=== PATIENT | male | born 1960 | race African-American/Black ===

== ENCOUNTER 2017-07-20 05:36 | Emergency (ER) | payer OTHER ==
[~2017-07-20] VITALS: Ht 182.9 cm; Wt 122.5 kg
[~2017-07-20 05:36] MED LIST: ASPIRIN325; CLEOCIN HCL300 MG PO; FISHOIL; HCTZ; LISINOPRIL; OCEAN45 ML NS; PERCOCET 5-3251 EACH PO
[2017-07-20] MEDS ORDERED: AZITHROMYCIN 2250 MG PO (07:11)
[2017-07-20] MEDS ORDERED: FLOVENT HFA 4444 MCG INH (07:11)
[2017-07-20 07:29] VITALS: BP 186/98
== END 2017-07-20 07:30 | disposition home or self-care (01) ==
LOC: ER 05:36
DX: J44.1 Chronic obstructive pulmonary disease with (acute) exacerbation (principal); I10 Essential (primary) hypertension; Z88.0 Allergy status to penicillin

== ENCOUNTER 2017-07-21 05:17 | Inpatient (IN) | payer OTHER ==
[~2017-07-21] VITALS: Ht 182.9 cm; Wt 121.6 kg
[2017-07-21] VITALS (11 sets, daily range): BP systolic 143–231; BP diastolic 78–163
--- NOTE | ~2017-07-21 | HC ---
[facility] [place] [address] CONSULTATION Name: SAUL LEÓN Room #: 200-I [facility] ..#: [id number] Admission: 07/21/17 Attend Phys: Kameron Woods MD Discharge: 07/22/17 Date of : 64 Report #: [id number] THIS REPORT FOR: //name// CC: Kameron GOLDEN unknown REASON FOR CONSULTATION: Cardiomyopathy. HISTORY OF PRESENT ILLNESS: The patient is a 56-year-old gentleman, remotely seen by Dr. Moraes who placed an LAD stent in 10/2012. He was last seen in the office in 2013. He has known occlusion of the right coronary with a nonischemic stress study in and around that same time. He now presents with increasing shortness of breath. On presentation, he was severely hypertensive. He had stopped all of his medications. He typically and recently has followed with a verification clerk at [facility]. He denies chest heaviness, pressure or ischemic type symptoms. There have been no heart failure symptoms including orthopnea, paroxysmal nocturnal dyspnea or lower extremity edema. No history of near syncope or syncope. MEDICATIONS: Include Aldactone 50 mg daily, atorvastatin 40 mg daily, carvedilol 25 mg twice daily, clonidine 0.2 mg twice daily, Lasix 40 mg daily, losartan 100 mg daily, amlodipine 10 mg daily. PAST MEDICAL HISTORY: Medical records have been reviewed and include a history of hypertension; chronic kidney disease, followed by Dr. Bailey, stage 3-4; depression; dyslipidemia. Cystoscopy with stent placement in 2003. SOCIAL HISTORY: He is an ongoing smoker, nondrinker. ALLERGIES: HE IS ALLERGIC TO PENICILLIN. FAMILY HISTORY: Father of cancer. REVIEW OF SYSTEMS: All systems negative except as that noted above. PHYSICAL EXAMINATION: GENERAL: A pleasant gentleman who is alert and in no distress. VITAL SIGNS: Blood pressure is 145/103. His presenting blood pressure was 218/156. 6 feet tall, 268 pounds. HEENT: There are neither xanthelasma, subcutaneous xanthomata, oral mucosal or digital cyanosis or kyphoscoliosis present. CHEST: Clear to auscultation and percussion. CARDIOVASCULAR: Regular rate and rhythm with normal S1, S2. No murmurs, rubs. ABDOMEN: Soft and nontender. EXTREMITIES: Without cyanosis, clubbing or edema. Radial pulses are 2+. NEUROLOGIC: Alert with a nonfocal exam. [facility] [address] [place] [address] CONSULTATION Name: SAUL LEÓN Room #: 200-I [facility]#: [id number] Admission: 07/21/17 Attend Phys: Kameron Woods MD Discharge: 07/22/17 Date of : 64 Report #: [id number] LABORATORY DATA: Sodium is 140, potassium 3.4, creatinine 2.7. Troponin 0.11, 0.14, 0.15. Cholesterol 268, LDL 180. White count 7.3, hemoglobin 12, hematocrit 37, platelet count 203. Normal thyroid function studies. RADIOLOGICAL DATA: Chest x-ray demonstrates cardiomegaly. Echocardiogram I have reviewed, ejection fraction 35% with inferior wall hypokinesis. This echocardiogram was obtained in the setting of severe hypertension. EKG, sinus rhythm with premature ventricular complexes, prior inferior infarct, LVH. IMPRESSION: 1. Hypertensive urgency. 2. Mixed hypertensive and ischemic cardiomyopathy. 3. Coronary artery disease with known right coronary artery occlusion, remote LAD stenting, no angina or ischemic type symptoms. 4. Chronic kidney disease, stage 3-4. 5. Dyslipidemia. 6. Tobacco dependency. 7. Medical noncompliance. RECOMMENDATIONS: 1. Agree with resumption of blood pressure medications. 2. Smoking cessation encouraged as well as salt restriction. 3. The patient would prefer all medicines and adjustments to come from one physician, preferably Dr. Avalos. He reports that he has seen 4 or 5 different physicians over the past year and multiple medicine changes have been made, making confused as to what exactly he should be taking. Cost of medicines is also a major issue and compliance. Currently, he is on all generic medicines. 4. Continued followup through his established verification clerk at [employer] scheduled. I have discussed these issues with the patient in detail. Thank you for asking me to participate in his care. <ELECTRONICALLY SIGNED> By: Cayetano Beard MD, [facility] 07/23/17 0903 [id number] Cayetano Beard MD, FACC /nt
--- NOTE | ~2017-07-21 | HC ---
[facility] [place] [address] CONSULTATION Name: SAUL LEÓN Room #: 200-I [facility] M.R.#: [id number] Admission: 07/21/17 Attend Phys: Kameron Woods MD Discharge: 07/22/17 Date of : 64 Report #: [id number] THIS REPORT FOR: //name// CC: Kameron Woods [facility] unknown DATE OF SERVICE: 07/21/2017 ATTENDING PHYSICIAN: Dr. Woods. REASON FOR CONSULTATION: Chronic kidney disease, hypertension. HISTORY OF PRESENT ILLNESS: The patient is well known to our service, followed by Dr. Avalos in the office with hypertensive nephrosclerosis and chronic kidney disease, stopped taking his medicines, developed worsening shortness of breath and came to the hospital. He was found to have some heart failure, high blood pressures and a creatinine of 2.8. PAST MEDICAL HISTORY: Longstanding difficult hypertension, poor compliance, chronic kidney disease, coronary artery disease, status post 2 coronary stents about 12-15 years ago. FAMILY HISTORY: Strongly positive for severe hypertension and chronic kidney disease. Mother was on dialysis. SOCIAL HISTORY: Smokes cigarettes, does not drink much alcohol. 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 REVIEW OF SYSTEMS: GENERAL: He has been feeling reasonably well, more shortwinded of late. EYES: Vision has been okay. ENT: Hearing okay. Swallows okay. No mouth ulcers. ENDOCRINE: No diabetes or thyroid disease. RESPIRATORY: Does get somewhat easily shortwinded with some orthopnea. CARDIAC: He is having a little bit of chest discomfort, not severe, 2 previous coronary stents as mentioned. GASTROINTESTINAL: No nausea, vomiting, diarrhea or bloody stools. GENITOURINARY: Good urinary stream without hematuria or stones. NEUROLOGIC: No seizure, syncope, stroke or neuropathy symptoms. PSYCHIATRIC: No depression or anxiety. MUSCULOSKELETAL: Denies arthritis. PHYSICAL EXAMINATION: GENERAL: This is a well-oriented gentleman, not shortwinded at rest, giving a good history. SKIN: Unremarkable. [facility] [address] [place] [address] CONSULTATION Name: SAUL LEÓN Room #: 200-I [facility].#: [id number] Admission: 07/21/17 Attend Phys: Kameron Woods MD Discharge: 07/22/17 Date of : 64 Report #: [id number] SKELETAL: Somewhat overweight. HEENT: Extraocular movements are full. No scleral icterus. Hearing and vision intact. Mucous membranes moist. Tongue, buccal mucosa benign. NECK: Supple, no carotid bruits are heard. CHEST: Diminished breath sounds at the bases. HEART: Regular. ABDOMEN: Soft, nontender. EXTREMITIES: Showing no edema. NEUROLOGIC: Grossly intact. LABORATORY DATA: Urinalysis pending. Hemoglobin 13.4. Sodium 144, potassium 3.0, chloride 107, bicarbonate 27, BUN 27, creatinine 2.8. Troponin I 0.15. ASSESSMENT AND PLAN: 1. Chronic kidney disease. He has known longstanding hypertensive nephrosclerosis, followed in our office. I will be restarting his home medications to control his blood pressure. He does have previous coronary stents, may need further attention in that regard. His major problem is noncompliance and running out of his medications and those will be restored. 2. Cigarette smoking. 3. Severe hypertension. 4. Medical noncompliance. <ELECTRONICALLY SIGNED> By: Ellis Rodriguez MD 07/23/17 1101 0920 [id number] Ellis Rodriguez MD /nt
--- NOTE | ~2017-07-21 | 2DMMODE ---
[facility] [address] [place] [address] 2 D/M-MODE ECHOCARDIOGRAM Name: SAUL LEÓN Room #: 200-I ADM IN ..#: [id number] Admission: 07/21/17 Attend Phys: Kameron Woods MD Discharge: Date of : 64 Date of Service: 07/21/17 1158 Report #: [id number] THIS REPORT FOR: //name// APPROVED REPORT Study performed: 07/21/2017 09:10:01 EXAM: Comprehensive 2D, Doppler, and color-flow Echocardiogram Patient Location: Bedside Room #: 200 Status: routine BSA: 2.44 HR: 87 bpm BP: 181/121 mmHg Other Information Study Quality: Adequate Indications Congestive Heart Failure COPD Dyspnea CAD Chest Pain Hypertension/HDD 2D Dimensions RVDd: 30.89 mm LVEF(%): 15.56 (>50%) IVSd: 15.13 (7-11mm) LVOT Diam: 24.40 (18-24mm) LVDd: 70.79 mm PWd: 14.32 (7-11mm) Ascending Ao: 33.87 (22-36mm) LVDs: 65.68 (25-40mm) Aortic Root: 31.46 mm IVC: 27.00 mm Waddell's LVEF: 15.56 % Volumes Left Atrial Volume (Systole) Single Plane 4CH: 81.27 mL Single Plane 2CH: 123.97 mL LA ESV Index: 45.00 mL/m2 Aortic Valve AoV Peak Phil.: 1.20 m/s AO Peak Gr.: 5.76 mmHg LVOT Max P.31 mmHg LVOT Max V: 0.76 m/s SALMA Vmax: 2.96 cm2 [facility] [address] [place] [address] 2 D/M-MODE ECHOCARDIOGRAM Name: SAUL LEÓN Room #: 200-I [facility] IN ..#: [id number] Admission: 07/21/17 Attend Phys: Kameron Woods MD Discharge: Date of : 64 Date of Service: 07/21/17 1158 Report #: [id number] AI Vmax: 5.79 m/s AI Mason: 4.13 m/s2 AI PHT: 433.11 ms Mitral Valve E/A Ratio: 1.3 MV Decel. Time: 115.41 ms MV E Max Phil.: 1.25 m/s MV A Phil.: 0.94 m/s MV PHT: 33.47 ms IVRT: 96.89 ms Pulmonary Valve PV Peak Phil.: 0.73 m/s PV Peak Gr.: 2.15 mmHg Pulmonary Vein P Vein S: 0.49 m/s P Vein A: 0.28 m/s P Vein D: 0.62 m/s P Vein A Dur.: 166.1 msec P Vein S/D Ratio: 0.79 Tricuspid Valve TR Peak Phil.: 2.45 m/s TR Peak Gr.: 23.93 mmHg PA Pressure: 34.00 mmHg Left Ventricle Left ventricle is dilated. There is global hypokinesis of the left ventricle. Moderate concentric left ventricular hypertrophy. Left ventricular ejection fraction is moderately decreased. Hypokinesis of base of inferolateral and inferior alexandra LVEF is 30-35%. The diastolic function is abnormal. Right Ventricle The right ventricle is normal size. The right ventricular systolic function is normal. Atria Left atrium is dilated. Right atrium is dilated. Aortic Valve Aortic valve is mildly calcified. Mild to moderate aortic regurgitation. There is no aortic valvular stenosis. Mitral Valve The mitral valve is normal in structure. Moderate to moderately severe mitral regurgitation. No evidence of mitral valve [facility] [address] [place] [address] 2 D/M-MODE ECHOCARDIOGRAM Name: SAUL LEÓN Room #: 200-I ADM IN [facility]#: [id number] Admission: 07/21/17 Attend Phys: Kameron Woods MD Discharge: Date of : 64 Date of Service: 07/21/17 1158 Report #: [id number]. Tricuspid Valve The tricuspid valve is normal in structure. There is trace tricuspid regurgitation. Estimated PAP 35 mmHg. There is mild pulmonary hypertension. Pulmonic Valve The pulmonary valve is normal in structure. There is no pulmonic valvular regurgitation. Great Vessels The aortic root is normal in size. IVC is dilated and collapses <50% with inspiration. Pericardium There is no pericardial effusion. <Conclusion> Left ventricular ejection fraction is moderately decreased. Hypokinesis of base of inferolateral and inferior alexandra LVEF is 30-35%. Both atria are dilated. Aortic valve is mildly calcified, no stenosis. Mild to moderate aortic regurgitation. The mitral valve is normal in structure. Moderate to moderately severe mitral regurgitation. There is trace tricuspid regurgitation. Estimated PAP 35 mmHg. There is no pericardial effusion. <ELECTRONICALLY SIGNED> By: Cayetano Beard MD, FACC 07/21/17 1158 1158 1158 Cayetano Beard MD, FACC /INF
--- NOTE | ~2017-07-21 | EKG ---
[place] [address] [address] [facility] [place] [address] ELECTROCARDIOGRAM REPORT Name: SAUL LEÓN Room #: 170-2 ADM IN M.R.#: [id number] Admission: 07/21/17 Attend Phys: Kameron Woods MD Discharge: Date of : 64 Report #: [id number] THIS REPORT FOR: //name// [facility] ED Test Date: 2017-07-21 Test Time: 05:30:38 Pat Name: SAUL LEÓN Department: Room: Gender: M Breadman: Ervin FERNANDES : 1960 Requested By: Jackson Burton Order Number: [id number] MD: Cayetano Beard Measurements Intervals [place] Rate: 96 P: 50 HI: 195 QRS: -20 QRSD: 119 T: 124 QT: 366 QTc: 463 Interpretive Statements Sinus rhythm Frequent premature ventricular complexes LAE, consider biatrial enlargement Left ventricular hypertrophy Inferior infarct, old Poor R wave progression Compared to ECG 07/16/2004 07:03:22 Ventricular premature complex(es) now present ST and T wave abnormality is now present Electronically Signed On 07-21-2017 7:42:25 CDT by Cayetano Beard [email or web address] <ELECTRONICALLY SIGNED> By: Cayetano Beard MD, [facility] 07/21/17 0742 9 Cayetano Beard MD, [facility] /EPI
[~2017-07-21 05:17] MED LIST changes: +AZITHROMYCIN 2250 MG PO; +FLOVENT HFA 4444 MCG INH
[2017-07-21 06:03] LABS: CALCIUM 8.4 mg/dL (8.5-10.1); CREATININE 2.8 mg/dL (0.7-1.3)
[2017-07-21 06:05] LABS: ABSOLUTE NEUTROPHILS 6.1 thou/uL (1.4-8.2); BASOPHILS 0.6 % (0.0-2.0); EOSINOPHILS 2.1 % (0.0-3.0); HEMATOCRIT 39.7 % (42.0-52.0); HEMOGLOBIN 13.4 gm/dL (14.0-18.0); MCH 30.4 pg (26.0-34.0); MCHC 33.8 g/dL (28.0-37.0); MONOCYTES 6.3 % (1.0-8.0); PLATELET COUNT 210 thou/uL (150-400); RBC 4.41 mil/uL (4.50-6.00); RDW 17.7 % (10.5-14.5); WBC 8.9 thou/uL (4.0-11.0)
[2017-07-21 06:12] LABS: TROPONIN-I 0.15 ng/mL (<0.06)
[2017-07-21 10:31] LABS: CHOLESTEROL 268 mg/dL (<200); HDL CHOLESTEROL 46 mg/dL (>40); LDL CHOLESTEROL 180 mg/dL (<100); MAGNESIUM 1.5 mg/dL (1.8-2.4); TC:HDL 5.8 Ratio (Not establshd); TRIGLYCERIDE 212 mg/dL (<150); VLDL 42 mg/dL (<40)
[2017-07-21 10:51] LABS: FOLIC ACID 3.6 ng/mL (8.6-58.9); TSH 2.826 uIU/mL (0.358-3.740)
[2017-07-22] VITALS (7 sets, daily range): BP systolic 137–155; BP diastolic 89–108
[2017-07-22 03:55] LABS: ABSOLUTE NEUTROPHILS 5.2 thou/uL (1.4-8.2); BASOPHILS 0.4 % (0.0-2.0); EOSINOPHILS 3.6 % (0.0-3.0); HEMATOCRIT 37.2 % (42.0-52.0); HEMOGLOBIN 12.5 gm/dL (14.0-18.0); LYMPHOCYTES 18.6 % (24.0-44.0); MCH 30.2 pg (26.0-34.0); MCHC 33.5 g/dL (28.0-37.0); MCV 89.9 fL (80.0-100.0); MONOCYTES 6.2 % (1.0-8.0); PLATELET COUNT 203 thou/uL (150-400); POLYS 71.2 % (36.0-66.0); RBC 4.13 mil/uL (4.50-6.00); RDW 17.5 % (10.5-14.5); WBC 7.3 thou/uL (4.0-11.0)
[2017-07-22 04:07] LABS: ALBUMIN 2.6 g/dL (3.4-5.0); CALCIUM 8.6 mg/dL (8.5-10.1); CREATININE 2.7 mg/dL (0.7-1.3); MAGNESIUM 1.8 mg/dL (1.8-2.4); PHOSPHORUS 3.2 mg/dL (2.5-4.9); POTASSIUM 3.4 mmol/L (3.5-5.1)
[2017-07-22] MEDS ORDERED: SPIRONOLACTONE25 M1 PO (12:28)
[2017-07-22] MEDS ORDERED: AMLODIPINE BESYL5 MG PO (12:28)
[2017-07-22] MEDS ORDERED: COZAAR100 MG PO (12:28)
[2017-07-22] MEDS ORDERED: CLONIDINE HCL0.2 M2 PO (12:28)
[2017-07-22] MEDS ORDERED: CARVEDILOL25 MG PO (12:28)
[2017-07-22] MEDS ORDERED: K-DUR 20 MEQ T20 MEQ PO (12:28)
[2017-07-22] MEDS ORDERED: LIPITOR40 MG PO (12:28)
[2017-07-22] MEDS ORDERED: LASIX 40 MG TAB40 M2 PO (12:28)
== END 2017-07-22 17:20 | disposition home or self-care (01) | DRG 304 ==
LOC: ER 05:17 → EROBS 06:48 → 2N 06:48 → ENTRNSPT 07-22 13:30 → EDTRNSPTSTS 07-22 13:33 → 2N 07-22 17:20
PROVIDERS: Emergency Medicine; Nurse Practitioner
DX: I16.0 Hypertensive urgency (principal); I50.33 Acute on chronic diastolic (congestive) heart failure; I16.1 Hypertensive emergency; N18.4 Chronic kidney disease, stage 4 (severe); N17.9 Acute kidney failure, unspecified; I13.0 Hypertensive heart and chronic kidney disease with heart failure and stage 1 through stage 4 chronic kidney disease, or unspecified chronic kidney disease; E78.2 Mixed hyperlipidemia; I25.5 Ischemic cardiomyopathy; J44.9 Chronic obstructive pulmonary disease, unspecified; E87.6 Hypokalemia; E66.9 Obesity, unspecified; I25.10 Atherosclerotic heart disease of native coronary artery without angina pectoris; F32.9 Major depressive disorder, single episode, unspecified; F17.210 Nicotine dependence, cigarettes, uncomplicated; Z68.36 Body mass index [BMI] 36.0-36.9, adult; Z95.5 Presence of coronary angioplasty implant and graft; Z79.51 Long term (current) use of inhaled steroids; Z91.14 Patient's other noncompliance with medication regimen; Z79.82 Long term (current) use of aspirin; Z79.899 Other long term (current) drug therapy; Z88.0 Allergy status to penicillin; Z82.49 Family history of ischemic heart disease and other diseases of the circulatory system; Z71.6 Tobacco abuse counseling; Z84.1 Family history of disorders of kidney and ureter; Z80.8 Family history of malignant neoplasm of other organs or systems
CPT/HCPCS: 10194

== ENCOUNTER 2018-05-27 08:54 | Emergency (ER) | payer OTHER ==
[~2018-05-27] VITALS: Ht 182.9 cm; Wt 122.5 kg
[~2018-05-27 08:54] MED LIST changes: +AMLODIPINE BESYL5 MG PO; +CARVEDILOL25 MG PO; +CLONIDINE HCL0.2 M2 PO; +COZAAR100 MG PO; +K-DUR 20 MEQ T20 MEQ PO; +LASIX 40 MG TAB40 M2 PO; +LIPITOR40 MG PO; +SPIRONOLACTONE25 M1 PO
[2018-05-27 09:43] LABS: ABSOLUTE NEUTROPHILS 2.5 thou/uL (1.4-8.2); BASOPHILS 0.6 % (0.0-2.0); EOSINOPHILS 7.1 % (0.0-3.0); HEMATOCRIT 33.1 % (42.0-52.0); HEMOGLOBIN 11.2 gm/dL (14.0-18.0); LYMPHOCYTES 20.2 % (24.0-44.0); MCH 30.4 pg (26.0-34.0); MCHC 33.7 g/dL (28.0-37.0); MCV 90.2 fL (80.0-100.0); MONOCYTES 9.9 % (1.0-8.0); PLATELET COUNT 209 thou/uL (150-400); POLYS 62.2 % (36.0-66.0); RBC 3.67 mil/uL (4.50-6.00)
[2018-05-27 09:51] LABS: ANION GAP 9 mmol/L (7-16); BUN 21 mg/dL (7-18); CALCIUM 8.7 mg/dL (8.5-10.1); CHLORIDE 105 mmol/L (98-107); CO2 23 mmol/L (21-32); CREATININE 2.5 mg/dL (0.7-1.3); GLUCOSE 112 mg/dL (74-106); POTASSIUM 4.4 mmol/L (3.5-5.1); SODIUM 137 mmol/L (136-145)
[2018-05-27 10:00] LABS: TROPONIN-I <0.06 ng/mL (<0.06)
[2018-05-27 12:23] VITALS: BP 157/97
[2018-05-27] MEDS ORDERED: PREDNISONE 20 M20 MG PO (12:25)
[2018-05-27] MEDS ORDERED: VENTOLIN HFA 1818 GM INH (12:25)
--- NOTE | 2018-05-27 18:05 | EKG ---
[place] [address] [facility] [place] [address] ELECTROCARDIOGRAM REPORT Name: SAUL LEÓN [facility]: [facility] [id number] ������������������ Admission: 05/27/18 ������������������ Attend Phys: Discharge: 05/27/18 ������������������ Date of : 64 Report #: [id number] ����������������������������������������������������������������� [id number] THIS REPORT FOR: //name// [facility] ED Test Date: 2018-05-27 Test Time: 09:58:30 Pat Name: SAUL LEÓN Department: Room: Gender: M Millinery Blocker: : 1960 Requested By: Jackson Burton Order Number: [id number] MD: Cayetano Beard Measurements Intervals [place] Rate: 71 P: 28 AL: 231 QRS: -33 QRSD: 119 T: 4 QT: 416 QTc: 453 Interpretive Statements Sinus rhythm Prolonged AL interval Left ventricular hypertrophy Inferior infarct, old Poor R wave progression Compared to ECG 07/21/2017 05:30:38 First degree AV block now present Ventricular premature complex(es) no longer present Electronically Signed On 05-27-2018 18:04:47 CDT by Cayetano Beard [email or web address] ��������������������������������������������� <ELECTRONICALLY SIGNED> ���������������������������������������� By: Cayetano Beard MD, [facility] ��������������������������������������������� 05/27/18 1804 0958 0958 Cayetano Beard MD, [facility] /EPI
== END 2018-05-27 12:46 | disposition home or self-care (01) ==
LOC: ER 08:54
PROVIDERS: Emergency Medicine
DX: J44.1 Chronic obstructive pulmonary disease with (acute) exacerbation (principal); F17.210 Nicotine dependence, cigarettes, uncomplicated; I10 Essential (primary) hypertension; Z88.0 Allergy status to penicillin; Z95.5 Presence of coronary angioplasty implant and graft

== ENCOUNTER 2020-06-18 10:35 | Emergency (ER) | payer OTHER ==
[~2020-06-18] VITALS: Ht 177.8 cm; Wt 99.8 kg
[~2020-06-18 10:35] MED LIST changes: +PREDNISONE 20 M20 MG PO; +VENTOLIN HFA 1818 GM INH
[2020-06-18 10:39] VITALS: BP 164/94
[2020-06-18] MEDS ORDERED: NORCO5 PO (10:51)
[2020-06-18] MEDS ORDERED: CLINDAMYCIN HC300 MG PO (10:51)
== END 2020-06-18 11:27 | disposition home or self-care (01) ==
LOC: ER 10:35
DX: K08.89 Other specified disorders of teeth and supporting structures (principal); I10 Essential (primary) hypertension; F17.210 Nicotine dependence, cigarettes, uncomplicated; Z79.899 Other long term (current) drug therapy; Z88.0 Allergy status to penicillin

== ENCOUNTER 2020-08-30 02:06 | Inpatient (IN) | payer OTHER ==
[~2020-08-30] VITALS: Ht 188 cm; Wt 121.1 kg
--- NOTE | ~2020-08-30 | EMS ---
[address] [address] EMS Patient Care Report Name: SAUL LEÓN Room #: 360-P ADM IN M.R.#: [id number] Admission: 08/30/20 Attend Phys: Ruel Emanuel MD Discharge: Date of : 64 Report #: [id number] THIS REPORT FOR: //name// Report Transmitted: 08/30/2020 09:09 EMS Care Summary [place], [place]/[facility] Incident [id number] @ 08/30/2020 01:31 Incident Location [address] [place] [address] Patient SAUL LEÓN Male, 59 Years 1960 Patient Address [address] [place] [address] Patient History Chronic Obstructive Pulmonary Disease (COPD),Hypertension (HTN),Hyperlipidemia,Myocardial Infarction (DE), Patient Allergies Penicillin allergy, Patient Medications Atorvastatin, Torsemide, Isosorbide, ASA, Hydralazine, Fluoxetine, Calcitonin, Nitroglycerin, Metoprolol, Allopurinol, Amitriptyline, Chief Complaint I can't breathe Disposition Transported Lights/[place] Dispatch Reason Breathing Problem Transported To [facility] Narrative Called to the scene for SOB. Upon arrival, pt was ROBLES x 3, severe respiratory distress, diaphoretic. He said this has been going for a little while and kept [address] [address] EMS Patient Care Report Name: SAUL LEÓN Room #: 360-P [facility] IN ..#: [id number] Admission: 08/30/20 Attend Phys: Ruel Emanuel MD Discharge: Date of : 64 Report #: [id number] getting worse. He denied CP, N/V, fever and diarrhea. Vitals obtained. O2 and Duo Neb, 18g IV and D-stick. 125mg Solumedrol, Vitals repeated. Pt stated he was doing better with the Duo Neb. He was assisted to the EMS cot and loaded into the ambulance w/o incident. 4 and 12 lead obtained, no ST elevation noted. Vitals repeated. 12 Lead repeated. En route: RR to ER. Arrived: pt taken to ER #1 and moved to their bed w/o incident. Pt care & report to ER staff. Initial Vitals @02:04P: 106,CO: 2,SpO2: 100, @02:00P: 105,DE Suspected: false @02:00P: 100,R: 32,BP: 164/120,Pain: 0/10,GCS: 15,SpO2: 100,Revised Trauma: 11,DE Suspected: false @01:46P: 111,R: 40,BP: 193/111,Pain: 0/10,GCS: 15,Glucose: 166,CO: 4,SpO2: 94,Revised Trauma: 11, Assessments @01:45MENTAL:Person Oriented,Time Oriented,Event Oriented,Place Oriented,SKIN:Diaphoresis,HEENT:Head/Face: No Abnormalities,Neck/Airway: No Abnormalities,LUNG SOUNDS:ABDOMEN:PELVIS//GI:EXTREMITIES:Left Arm: No Abnormalities,Right Arm: No Abnormalities,Left Leg: No Abnormalities,Right Leg: No Abnormalities,PULSE:Radial: 2+ Normal,NEURO:No Abnormalities, Impression Acute Respiratory Distress (Dyspnea) Procedures @02:0412-Lead ECGResponse: UnchangedSucceeded@01:49Saline Lock 8cc (18 ga) Site: Hand-LeftResponse: UnchangedFailed@01:5912-Lead ECGResponse: UnchangedSucceeded@02:0012-Lead ECGResponse: UnchangedSucceeded@01:45ALS AssessmentResponse: UnchangedSucceeded@01:47Albuterol - 2.5 Milligrams (mg) - NebulizedResponse: Improved@01:50Solu-Medrol - 125 Milligrams (mg) - Intravenous (IV)Response: Improved@01:47Atrovent - 0.5 Milligrams (mg) - NebulizedResponse: Improved@01:47Albuterol - 2.5 Milligrams (mg) - NebulizedResponse: Improved@01:47Oxygen FlowRate: 8 Device: Nebulizer Response: UnchangedSucceeded@01:573-Lead ECGResponse: UnchangedSucceeded@01:55StretcherResponse: Unchanged Timeline 01:30,Call Received 01:30,Dispatch Notified 01:31,Dispatched 01:33,En Route 01:42,On Scene 01:45,At Patient 01:45,ALS Assessment,Response: UnchangedSucceeded, [address] [address] EMS Patient Care Report Name: SAUL LEÓN Room #: 360-P [facility] IN ..#: [id number] Admission: 08/30/20 Attend Phys: Ruel Emanuel MD Discharge: Date of : 64 Report #: [id number] 01:46,BP: 193/111 M,PULSE: 111,RR: 40 R,SPO2: 94 Ox,ETCO2: ,B,PAIN: 0,GCS: 15, 01:47,Oxygen FlowRate: 8 Device: Nebulizer Response: UnchangedSucceeded, 01:47,Albuterol - 2.5 Milligrams (mg) - Nebulized,Response: Improved 01:47,Albuterol - 2.5 Milligrams (mg) - Nebulized,Response: Improved 01:47,Atrovent - 0.5 Milligrams (mg) - Nebulized,Response: Improved 01:49,Saline Lock 8cc 18 ga Site: Hand-Left,Response: UnchangedFailed, 01:50,Solu-Medrol - 125 Milligrams (mg) - Intravenous (IV),Response: Improved 01:55,Stretcher,Response: Unchanged 01:57,3-Lead ECG,Response: UnchangedSucceeded, 01:59,12-Lead ECG,Response: UnchangedSucceeded, 02:00,12-Lead ECG,Response: UnchangedSucceeded, 02:00,BP: / M,PULSE: 105,RR: R,SPO2: Ox,ETCO2: ,BG: ,PAIN: ,GCS: , 02:00,Depart Scene 02:00,BP: 164/120 M,PULSE: 100,RR: 32 R,SPO2: 100 Ox,ETCO2: ,BG: ,PAIN: 0,GCS: 15, 02:04,At Destination 02:04,12-Lead ECG,Response: UnchangedSucceeded, 02:04,BP: / M,PULSE: 106,RR: R,SPO2: 100 Ox,ETCO2: ,BG: ,PAIN: ,GCS: , 02:26,Call Closed Disclaimer v1.1 Copyright 2020 [employer] This EMS Care Summary contains data elements from the applicable legal record (which may be displayed differently). It is designed to provide pertinent information for the following purposes: continuity of care, clinical quality, and state data reporting. The complete legal record is available to ED staff and administrators of the receiving hospital in [employer]'s Patient Tracker. All data is provided "as is."
[~2020-08-30 02:06] MED LIST changes: +CLINDAMYCIN HC300 MG PO; +NORCO5 PO
[2020-08-30 10:09] LABS: ALBUMIN 3.2 g/dL (3.4-5.0); CALCIUM 8.3 mg/dL (8.5-10.1); CREATININE 4.7 mg/dL (0.7-1.3); POTASSIUM 3.9 mmol/L (3.5-5.1); TOTAL BILIRUBIN 0.4 mg/dL (0.2-1.0); TOTAL PROTEIN 7.2 g/dL (6.4-8.2); TROPONIN-I 0.36 ng/mL (<0.06)
[2020-08-30 10:11] LABS: ABSOLUTE NEUTROPHILS 3.9 thou/uL (1.4-8.2); BASOPHILS 0.6 % (0.0-2.0); EOSINOPHILS 4.5 % (0.0-3.0); HEMATOCRIT 26.6 % (42.0-52.0); HEMOGLOBIN 8.5 gm/dL (14.0-18.0); LYMPHOCYTES 17.5 % (24.0-44.0); MCH 28.3 pg (26.0-34.0); MCV 88.4 fL (80.0-100.0); MONOCYTES 10.3 % (1.0-8.0); PLATELET COUNT 249 thou/uL (150-400); POLYS 67.1 % (36.0-66.0); RBC 3.01 mil/uL (4.50-6.00); RDW 21.3 % (10.5-14.5); WBC 5.8 thou/uL (4.0-11.0)
[2020-08-30 10:12] LABS: APTT 25.5 Seconds (24.5-32.8); INR 1.02; PROTIME 11.1 Seconds (10.5-12.1)
[2020-08-30 10:38] LABS: CHOLESTEROL 140 mg/dL (<200); HDL CHOLESTEROL 41 mg/dL (>40); LDL CHOLESTEROL 85 mg/dL (<100); TC:HDL 3.4 Ratio (Not establshd); TRIGLYCERIDE 72 mg/dL (<150); TROPONIN-I 0.34 ng/mL (<0.06); VLDL 14 mg/dL (<40)
[2020-08-30 11:34] VITALS: BP 174/111
--- NOTE | 2020-08-30 13:57 | 2DMMODE ---
[facility] [place] [address] 2 D/M-MODE ECHOCARDIOGRAM Name: SAUL LEÓN Room #: 360-P ADM IN M.R.#: [id number] Admission: 08/30/20 Attend Phys: Ruel Emanuel MD Discharge: Date of : 64 Report #: [id number] THIS REPORT FOR: cc: CHANTEL - Hilary family physician/PCP CHANTEL - No family physician/PCP Dusty Estrada MD [facility] ~ APPROVED REPORT Study performed: 08/30/2020 13:00:22 EXAM: Comprehensive 2D, Doppler, and color-flow Echocardiogram Patient Location: Bedside Room #: 360 Status: routine BSA: 2.44 HR: 96 bpm BP: 174/111 mmHg Rhythm: AV BLOCK Other Information Study Quality: Good Indications Congestive Heart Failure Hx: CAD, PCI, HTN. 2D Dimensions RVDd: 31.13 mm IVSd: 13.70 (7-11mm) LVOT Diam: 23.41 (18-24mm) LVDd: 72.33 mm PWd: 11.76 (7-11mm) Ascending Ao: 39.10 (22-36mm) LVDs: 65.93 (25-40mm) Left Atrium: 54.22 (27-40mm) Aortic Root: 38.15 mm Volumes Left Atrial Volume (Systole) Single Plane 4CH: 118.22 mL Single Plane 2CH: 114.82 mL LA ESV Index: 50.00 mL/m2 Aortic Valve AoV Peak Phil.: 1.82 m/s AO Peak Gr.: 13.32 mmHg LVOT Max P.47 mmHg LVOT Max V: 1.17 m/s [facility] [place] [address] 2 D/M-MODE ECHOCARDIOGRAM Name: SAUL LEÓN Room #: 360-P [facility] IN [facility].#: [id number] Admission: 08/30/20 Attend Phys: Ruel Emanuel, Discharge: Date of : 64 Report #: [id number] [id number] Vmax: 2.76 cm2 Pulmonary Valve PV Peak Phil.: 0.95 m/s PV Peak Gr.: 3.59 mmHg Tricuspid Valve RAP Estimate: 15.00 mmHg Left Ventricle Left ventricle is severely dilated. Mild concentric left ventricular hypertrophy. Left ventricular systolic function is severely decreased. LVEF is 30%. This study is not technically sufficient to allow evaluation of the LV diastolic function. Right Ventricle The right ventricle is normal size. Right ventricle is mildly hypokinetic. Atria Left atrium is moderately dilated. Right atrium is mildly dilated. Aortic Valve The aortic valve is normal in structure; mildly thickened. Mild to moderate aortic regurgitation. There is no aortic valvular stenosis. Mitral Valve The mitral valve is normal in structure. Moderate to severe mitral regurgitation Tricuspid Valve The tricuspid valve is normal in structure. There is no tricuspid valve regurgitation noted. Unable to assess PA pressure. Pulmonic Valve The pulmonary valve is normal in structure. There is no pulmonic valvular regurgitation. Great Vessels Aortic root and ascending aorta measure at the upper limits of normal. IVC is dilated and collapses <50% with inspiration. Pericardium There is no pericardial effusion. [facility] [address] [place] [address] 2 D/M-MODE ECHOCARDIOGRAM Name: HANS LEÓNURICStella ESCOBEDO Room #: 360-[facility] IN [facility].#: [id number] Admission: 08/30/20 Attend Phys: Ruel Emanuel, Discharge: Date of : 64 Report #: [id number] <Conclusion> Left ventricle severely dilated Normal wall thickness Global hypokinesis ejection fraction 30% Normal right ventricular size/mild hypokineses Left atrium moderately dilated Right atrium mildly dilated Color-flow Doppler study was performed of the aortic/mitral/tricuspid/pulmonary valve Mild aortic valve thickening Mild-moderate aortic valve insufficiency Moderate-severe central mitral valve insufficiency No tricuspid valve insufficiency No pericardial effusion IVC moderately dilated/mildly responsive to respiration Normal aortic root size. <ELECTRONICALLY SIGNED> By: Dusty Estrada MD, [facility] 08/30/20 1357 1357 1357 Dusty Estrada MD, FACC /INF
[2020-08-30 15:25] VITALS: BP 176/103
--- NOTE | 2020-08-30 17:17 | NUR ---
PATIENT ADMITTED TO ROOM 360 FROM ER. PATIENT CONTINUES TO HAVE DYSPNEA WITH EXCERSION AND AMBULATION. PATIENT IS A/O X4, FC, GARCIA AND USES A CANE WHEN AMBULATING. ABX INFUSED PER ORDERS. PATIENT HAS BEEN ON 2L NC WITH O2 SAT IN THE MID 90'S. NBP ELEVATED THIS SHIFT, PRN MEDICATION ORDERED BY PHYSICIAN - NBP RESPONDED APPROPRIATELY. NO OTHER ACUTE CHANGES FROM PREVIOUSLY CHARTED ASSESSMENTS.
[2020-08-30 17:22] VITALS: BP 164/92
[2020-08-30 20:35] VITALS: BP 182/109
[2020-08-30 20:44] VITALS: BP 178/81
[2020-08-30] MEDS ORDERED: TORSEMIDE100 MG PO (22:37)
[2020-08-30] MEDS ORDERED: AMITRIPTYLINE H25 M2 PO (22:40)
[2020-08-30] MEDS ORDERED: ALLOPURINOL 10100 M3 PO (22:40)
[2020-08-30] MEDS ORDERED: ASA81BEC PO (22:41)
[2020-08-30] MEDS ORDERED: ATORVASTATIN CA80 MG PO (22:42)
[2020-08-30] MEDS ORDERED: CALCITRIOL0.25 MCG PO (22:42)
[2020-08-30] MEDS ORDERED: PROZAC20 M1 PO (22:43)
[2020-08-30] MEDS ORDERED: HYDRALAZINE 5050 MG PO (22:44)
[2020-08-30] MEDS ORDERED: MINOXIDIL10 MG PO (22:45)
[2020-08-30] MEDS ORDERED: ISOSORBIDE DINI20 M2 PO (22:45)
[2020-08-30] MEDS ORDERED: NITROSTAT0.4 M1 SUBLING (22:47)
[2020-08-30] MEDS ORDERED: ANTACID325 MG PO (22:49)
[2020-08-30] MEDS ORDERED: METOPROLOL SUC100 MG PO ×2 (22:51→22:53)
[2020-08-30] MEDS ORDERED: TOPROL XL100 MG PO (22:52)
[2020-08-30 23:06] LABS: GLYCOHEMOGLOBIN (HGB A1C) 6.3 % (4.8-5.6)
[2020-08-31 00:07] VITALS: BP 157/104
[2020-08-31 03:39] LABS: ALBUMIN 3.4 g/dL (3.4-5.0); CALCIUM 8.7 mg/dL (8.5-10.1); CREATININE 4.8 mg/dL (0.7-1.3); PHOSPHORUS 4.1 mg/dL (2.6-4.7)
[2020-08-31 03:55] VITALS: BP 158/109
[2020-08-31 04:46] LABS: POTASSIUM 5.2 mmol/L (3.5-5.1)
--- NOTE | 2020-08-31 06:32 | NUR ---
Pt. didn't sleep much last night. O2 at 2L/NC with O2 sat of 98%. Very short of breath with exertion. BP remains high. Scheduled BP meds given at HS. Up in recliner chair this am then requested to use bathroom to have a bm. After using the bathroom , he c/o being short of breath and panicked. Another RN helping the pt. RT gave him breathing tx. TRAFFIC COURT REFEREE notified and order received. Pt. encouraged to relax . Voiding per urinal. Pt. is now resting on bed more calm and breathing a lot better. RT put him on ventimask after breathing tx.
--- NOTE | 2020-08-31 07:18 | EKG ---
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 : 1960 Requested By: Ruel Emanuel Order Number: [id number] MD: Dusty Estrada Measurements Intervals [place] Rate: 101 P: 14 GA: 183 QRS: -29 QRSD: 133 T: 139 QT: 369 QTc: 479 Interpretive Statements Sinus tachycardia Multiple ventricular premature complexes IVCD, consider atypical LBBB Baseline wander in lead(s) III,aVL Compared to ECG 05/27/2018 09:58:30 Ventricular premature complex(es) now present Atrial abnormality now present Sinus rhythm no longer present First degree AV block no longer present Left ventricular hypertrophy no longer present Myocardial infarct finding no longer present Electronically Signed On 08-31-2020 7:18:17 CDT by Dusty Estrada [email or web address] <ELECTRONICALLY SIGNED> By: Dusty Estrada MD, [facility] 08/31/20717 2 2 Dusty Estrada MD, [facility] /EPI
[2020-08-31 08:21] VITALS: BP 160/104
[2020-08-31 11:27] VITALS: BP 144/108
[2020-08-31 16:31] VITALS: BP 153/110
--- NOTE | 2020-08-31 18:40 | NUR ---
RN ASSUMED PT'S CARE AT 0700AM, PT IS A&OX4 , PT IS ON MASK O2 35% AND O2 4L/MIN/NC TO KEEP O2 >92%, PT IS CONTINUING IV ABX , PT STARTS IV LASIX 40MG BID, PT'S SOB HAS IMPROVED, PT GETS UP TO CHAIR WITH ASSIST. PT'S VS ARE STABLE AT DAY SHIFT.
[2020-08-31 20:05] VITALS: BP 156/108
[2020-09-01 04:02] VITALS: BP 163/104
--- NOTE | 2020-09-01 04:32 | NUR ---
Pt. slept intermittently in the recliner chair. Maintaining O2 sat in the mid to upper 90's on 3L/NC. He still gets short of breath with exertion but definitely better than what it was yesterday. Diuresed well with IV lasix , voided per urinal. Making some progress towards care plan goals.
[2020-09-01 07:46] VITALS: BP 165/95
[2020-09-01 10:08] LABS: ALBUMIN 3.1 g/dL (3.4-5.0); CALCIUM 8.6 mg/dL (8.5-10.1); CREATININE 5.2 mg/dL (0.7-1.3); PHOSPHORUS 5.3 mg/dL (2.6-4.7); POTASSIUM 4.2 mmol/L (3.5-5.1)
[2020-09-01 11:36] VITALS: BP 156/96
[2020-09-01 16:19] VITALS: BP 160/95
--- NOTE | 2020-09-01 17:44 | NUR ---
assumed care of pt at 0700. oriented, anxious at times. 1L NC. using urinal. iv abx infusing per order. good pain relief with med regimen. wcm.
[2020-09-01 20:04] VITALS: BP 161/102
[2020-09-02 03:35] VITALS: BP 182/106
--- NOTE | 2020-09-02 04:13 | NUR ---
Assumed pt care at 1900. Pt is alert an oriented. No sign of distress noted in pt. Pt is sitting in chair. Assessment completed and documented. Patient verbalized pain. Pain med administered upon request. Scheduled meds administered to pt. No aucuet event through the night. Continue to monitor, no further needs at this time.
[2020-09-02 06:10] LABS: ALBUMIN 3.2 g/dL (3.4-5.0); CALCIUM 8.3 mg/dL (8.5-10.1); CREATININE 5.4 mg/dL (0.7-1.3); PHOSPHORUS 5.1 mg/dL (2.5-4.9); POTASSIUM 4.4 mmol/L (3.5-5.1)
[2020-09-02 07:25] VITALS: BP 175/103
[2020-09-02 11:33] VITALS: BP 146/89
[2020-09-02] MEDS ORDERED: CARVEDILOL25 MG PO (11:56)
[2020-09-02] MEDS ORDERED: ANTACID325 MG PO (11:57)
[2020-09-02 14:52] VITALS: BP 146/89
--- NOTE | 2020-09-02 15:46 | NUR ---
RN ASSUMED PT'S CARE AT 0700-1525PM, PT IS A&OX4, PT'S SOB AND PAIN HAVE IMPROVED, PT IS OFF O2 AND HE IS ON ROOM AIR , PT'S O2SAT KEEPS AT 92-98%, PT CAN GET UP TO BATH ROOM AND HALLWAY WITH CANE , RN RECEIVED ORDER TO DC PT TO HOME, PT UNDERSTANDS DC TEACHING WELL , RN 'S VS ARE STABLE , RN SENT PT TO PT'S SON CAR BY WC , PT WAS SAFE TO GO HOME AT 1525PM.
== END 2020-09-02 15:56 | disposition home or self-care (01) | DRG 280 ==
LOC: 3W 02:06
PROVIDERS: Hospitalist; Internal Medicine Nephrology; ADMIT Internal Medicine; ATTEND Internal Medicine
DX: I13.0 Hypertensive heart and chronic kidney disease with heart failure and stage 1 through stage 4 chronic kidney disease, or unspecified chronic kidney disease (principal); J96.01 Acute respiratory failure with hypoxia; I21.4 Non-ST elevation (NSTEMI) myocardial infarction; I50.43 Acute on chronic combined systolic (congestive) and diastolic (congestive) heart failure; J44.1 Chronic obstructive pulmonary disease with (acute) exacerbation; N18.4 Chronic kidney disease, stage 4 (severe); N17.9 Acute kidney failure, unspecified; E78.5 Hyperlipidemia, unspecified; F17.210 Nicotine dependence, cigarettes, uncomplicated; K21.9 Gastro-esophageal reflux disease without esophagitis; I48.91 Unspecified atrial fibrillation; I25.10 Atherosclerotic heart disease of native coronary artery without angina pectoris; J44.9 Chronic obstructive pulmonary disease, unspecified; E87.5 Hyperkalemia; E11.22 Type 2 diabetes mellitus with diabetic chronic kidney disease; E11.51 Type 2 diabetes mellitus with diabetic peripheral angiopathy without gangrene; E11.65 Type 2 diabetes mellitus with hyperglycemia; Z95.5 Presence of coronary angioplasty implant and graft; Z90.49 Acquired absence of other specified parts of digestive tract; Z79.899 Other long term (current) drug therapy; Z88.0 Allergy status to penicillin
CPT/HCPCS: 10879

== ENCOUNTER → 2020-09-18 | Outpatient (CLI) | payer OTHER ==
[~2020-09-18] MED LIST changes: +ALLOPURINOL 10100 M3 PO; +AMITRIPTYLINE H25 M2 PO; +ANTACID325 MG PO; +ASA81BEC PO; +ATORVASTATIN CA80 MG PO; +CALCITRIOL0.25 MCG PO; +HYDRALAZINE 5050 MG PO; +ISOSORBIDE DINI20 M2 PO; +METOPROLOL SUC100 MG PO; +MINOXIDIL10 MG PO; +NITROSTAT0.4 M1 SUBLING; +PROZAC20 M1 PO; +TOPROL XL100 MG PO; +TORSEMIDE100 MG PO
== END ==
LOC: SJCVC 12:32
PROVIDERS: ATTEND Internal Medicine Cardiovascular Disease
DX: R94.31 Abnormal electrocardiogram [ECG] [EKG] (principal); I44.7 Left bundle-branch block, unspecified; R00.0 Tachycardia, unspecified; I25.10 Atherosclerotic heart disease of native coronary artery without angina pectoris; E78.5 Hyperlipidemia, unspecified; I42.9 Cardiomyopathy, unspecified; I13.0 Hypertensive heart and chronic kidney disease with heart failure and stage 1 through stage 4 chronic kidney disease, or unspecified chronic kidney disease; N18.9 Chronic kidney disease, unspecified; I50.9 Heart failure, unspecified; F17.200 Nicotine dependence, unspecified, uncomplicated; Z86.79 Personal history of other diseases of the circulatory system; Z95.828 Presence of other vascular implants and grafts; Z79.82 Long term (current) use of aspirin; Z79.899 Other long term (current) drug therapy; Z88.0 Allergy status to penicillin

== ENCOUNTER 2020-10-07 04:48 | Inpatient (IN) | payer OTHER ==
[~2020-10-07] VITALS: Ht 182.9 cm; Wt 116.2 kg
--- NOTE | ~2020-10-07 | EMS ---
[place] [id number] EMS Patient Care Report Name: SAUL LEÓN Room #: REG JACQUELINE Mcmillan#: [id number] Admission: 10/07/20 Attend Phys: Discharge: Date of : 64 Report #: [id number] THIS REPORT FOR: //name// Report Transmitted: 10/07/2020 04:13 EMS Care Summary [place], [place]/[facility] Incident [id number] @ 10/07/2020 04:12 Incident Location [address] [place] [address] Patient SAUL LEÓN Male, 59 Years 1960 Patient Address [address] [place] [address] Patient History Congestive Heart Failure (CHF),Chronic Obstructive Pulmonary Disease (COPD),Hypertension (HTN),Hyperlipidemia,Myocardial Infarction ([place]), Patient Allergies Penicillin allergy, Patient Medications Calcitonin, ASA, Amitriptyline, Metoprolol, Torsemide, Atorvastatin, Hydralazine, Nitroglycerin, Fluoxetine, Allopurinol, Isosorbide, Chief Complaint Shortness of breath Disposition Transported No Lights/[place] Dispatch Reason Breathing Problem Transported To [facility] Narrative M42 dispatched on a breathing problems. M42 arrived to find [place] [address] EMS Patient Care Report Name: SAUL LEÓN Room #: REG ER Deyanira#: [id number] Admission: 10/07/20 Attend Phys: Discharge: Date of : 64 Report #: [id number] back bedroom with P36 at PT side. PT stated shortness of breath as chief complaint. PT stated shortness of breath started a few days prior. PT stated shortness of breath exacerbated by increased physical exertion. PT placed on oxygen via NRB STONE PRODUCT FABRICATOR. PT assisted to stand and walk outside to stretcher by EMS and use of cane. PT secured with seatbelts. PT denied N/V/D, productive cough and fever. PT stated he was vaccinated months ago for COVID. PT spoke in short sentences. PT vitals monitored en route. PT report given. PT scooted self to hospital bed. PT care and belongings transferred to ER staff at [facility] without incident. M42 placed back in service. Initial Vitals @04:36P: 104,R: 24,BP: 212/150,Pain: 0/10,GCS: 15,CO: 0,SpO2: 100,Revised Trauma: 12, @04:42P: 104,R: 24,BP: 104/70,Pain: 0/10,GCS: 15,CO: 1,SpO2: 99,Revised Trauma: 12, @04:29P: 114,R: 24,BP: 220/142,Pain: 0/10,GCS: 15,SpO2: 99,Revised Trauma: 12, Assessments @04:24MENTAL:Person Oriented,Event Oriented,Time Oriented,Place Oriented,SKIN:HEENT:LUNG SOUNDS:ABDOMEN:PELVIS//GI:EXTREMITIES:Left Leg: Other,PULSE:Radial: 2+ Normal,NEURO: Impression Shortness of breath Procedures @04:24ALS AssessmentResponse: UnchangedSucceeded@PTAOxygen FlowRate: 10 Device: Non Re-breather Mask (NRB) Response: UnchangedSucceeded@04:30Albuterol - 2.5 Milligrams (mg) - NebulizedResponse: Unchanged Timeline STONE PRODUCT FABRICATOR,Oxygen FlowRate: 10 Device: Non Re-breather Mask (NRB) Response: UnchangedSucceeded, 04:11,Call Received 04:11,Dispatch Notified 04:12,Dispatched 04:13,En Route 04:23,On Scene 04:24,At Patient 04:24,ALS Assessment,Response: UnchangedSucceeded, 04:29,BP: 220/142 M,PULSE: 114,RR: 24 R,SPO2: 99 Ox,ETCO2: ,BG: ,PAIN: 0,GCS: 15, 04:30,Albuterol - 2.5 Milligrams (mg) - Nebulized,Response: Unchanged 04:36,BP: 212/150 M,PULSE: 104,RR: 24 R,SPO2: 100 Ox,ETCO2: ,BG: ,PAIN: 0,GCS: [address] [address] EMS Patient Care Report Name: ROMELIASAULJAREN ESCOBEDO Room #: REG [facility].#: [id number] Admission: 10/07/20 Attend Phys: Discharge: Date of : 64 Report #: [id number] 15, 04:38,Depart Scene 04:42,BP: 104/70 M,PULSE: 104,RR: 24 R,SPO2: 99 Ox,ETCO2: ,BG: ,PAIN: 0,GCS: 15, 04:59,At Destination 05:07,Call Closed Disclaimer v1.1 Copyright 2020 [employer] This EMS Care Summary contains data elements from the applicable legal record (which may be displayed differently). It is designed to provide pertinent information for the following purposes: continuity of care, clinical quality, and state data reporting. The complete legal record is available to ED staff and administrators of the receiving hospital in [employer]'s Patient Tracker. All data is provided "as is."
[2020-10-07 04:52] VITALS: BP 188/115
[2020-10-07 05:13] LABS: ABSOLUTE NEUTROPHILS 5.2 thou/uL (1.4-8.2); BASOPHILS 0.6 % (0.0-2.0); EOSINOPHILS 1.9 % (0.0-3.0); HEMATOCRIT 26.7 % (42.0-52.0); HEMOGLOBIN 8.6 gm/dL (14.0-18.0); LYMPHOCYTES 9.7 % (24.0-44.0); MCH 28.3 pg (26.0-34.0); MCHC 32.3 g/dL (28.0-37.0); MCV 87.5 fL (80.0-100.0); MONOCYTES 7.7 % (1.0-8.0); PLATELET COUNT 211 thou/uL (150-400); POLYS 80.1 % (36.0-66.0); RBC 3.05 mil/uL (4.50-6.00); RDW 18.9 % (10.5-14.5); WBC 6.5 thou/uL (4.0-11.0)
[2020-10-07 05:28] LABS: CALCIUM 8.7 mg/dL (8.5-10.1); CREATININE 5.4 mg/dL (0.7-1.3); POTASSIUM 3.2 mmol/L (3.5-5.1)
[2020-10-07 05:38] LABS: ALBUMIN 3.2 g/dL (3.4-5.0); TOTAL BILIRUBIN 0.8 mg/dL (0.2-1.0); TROPONIN-I 0.11 ng/mL (<0.06)
[2020-10-07 14:33] VITALS: BP 191/116
[2020-10-07 14:57] VITALS: BP 153/116
[2020-10-07 17:33] VITALS: BP 187/119
[2020-10-07 19:45] VITALS: BP 150/96
--- NOTE | 2020-10-07 19:59 | NUR ---
Received from the ER, complined of hip pain on the lft, as per the pt he is scheduled for a hip replecement on the 19 of november this faiban. Admission orders carried out, pain is managed with medications. Endorsed to the night nurse.
[2020-10-08 04:45] VITALS: BP 183/135
[2020-10-08 05:21] LABS: ABSOLUTE NEUTROPHILS 4.8 thou/uL (1.4-8.2); BASOPHILS 0.2 % (0.0-2.0); HEMATOCRIT 26.7 % (42.0-52.0); HEMOGLOBIN 8.7 gm/dL (14.0-18.0); LYMPHOCYTES 4.9 % (24.0-44.0); MCH 28.1 pg (26.0-34.0); MCHC 32.7 g/dL (28.0-37.0); MCV 85.7 fL (80.0-100.0); MONOCYTES 1.8 % (1.0-8.0); PLATELET COUNT 260 thou/uL (150-400); POLYS 93.1 % (36.0-66.0); RBC 3.11 mil/uL (4.50-6.00); RDW 19.1 % (10.5-14.5); WBC 5.2 thou/uL (4.0-11.0)
[2020-10-08 05:39] LABS: MAGNESIUM 1.9 mg/dL (1.8-2.4); PHOSPHORUS 3.4 mg/dL (2.5-4.9); POTASSIUM 3.5 mmol/L (3.5-5.1)
--- NOTE | 2020-10-08 07:43 | NUR ---
PAIN WELL CONTROLLED.BP BETTER COMPARE TO YESTERDAY.PRN HYDRALAZINE IS AVAILABLE IF NEEDED.WAS ON O2 2L AND TITRATED TO ROOM AIR.FLUID RESTRICTION ENFORCED.MONITOR SHOWS SR.POC CONTINUED.
[2020-10-08 07:46] VITALS: BP 180/125; BP 180/415
[2020-10-08 11:24] VITALS: BP 149/91
--- NOTE | 2020-10-08 14:18 | 2DMMODE ---
[address] [address] D/M-MODE ECHOCARDIOGRAM Name: SAUL LEÓN Room #: 211-P ADM IN M.R.#: [id number] Admission: 10/07/20 Attend Phys: Fiorella House MD Discharge: Date of : 64 Report #: [id number] THIS REPORT FOR: cc: FAM - No family physician/PCP FAM - No family physician/PCP Kenny Thorne MD ~ APPROVED REPORT Study performed: 10/08/2020 13:23:16 EXAM: Comprehensive 2D, Doppler, and color-flow Echocardiogram Patient Location: Bedside Room #: 211 Status: routine BSA: 2.37 HR: 90 bpm BP: 149/91 mmHg Rhythm: NSR Other Information Study Quality: Good Indications Congestive Heart Failure Dyspnea Cardiomyopathy Left Ventricle Left ventricle is dilated. Mild concentric left ventricular hypertrophy. Left ventricular ejection fraction is severely decreased. LVEF is 30-35%. Right Ventricle The right ventricle is normal size. Right ventricle is hypokinetic. Atria Left atrium is dilated. Right atrium is dilated. Aortic Valve The aortic valve is normal in structure. The Aortic valve is sclerotic. Mild to moderate aortic regurgitation. There is no aortic valvular stenosis. [address] [address] D/M-MODE ECHOCARDIOGRAM Name: SAUL LEÓN Room #: 211-P ADM IN M.R.#: [id number] Admission: 10/07/20 Attend Phys: Fiorellamilly House, Discharge: Date of : 64 Report #: [id number] Mitral Valve The mitral valve is normal in structure. Moderate to severe mitral regurgitation No evidence of mitral valve stenosis. Tricuspid Valve The tricuspid valve is normal in structure. Trace tricuspid regurgitation. Unable to assess PA pressure. Pulmonic Valve The pulmonary valve is normal in structure. Great Vessels The aortic root is normal in size. IVC is normal in size and collapses >50% with inspiration. Pericardium There is no pericardial effusion. <Conclusion> Left ventricle is dilated. Mild concentric left ventricular hypertrophy. LVEF is 30-35%. Left atrium is dilated. Right atrium is dilated. The aortic valve is normal in structure. The Aortic valve is sclerotic. Mild to moderate aortic regurgitation. The mitral valve is normal in structure. Moderate to severe mitral regurgitation The tricuspid valve is normal in structure. Trace tricuspid regurgitation. Unable to assess PA pressure. There is no pericardial effusion. <ELECTRONICALLY SIGNED> By: Kenny Thorne MD 10/08/207 16 16 Kenny Thorne MD /INF
[2020-10-08 14:57] VITALS: BP 159/101
[2020-10-08 19:52] VITALS: BP 160/94
--- NOTE | 2020-10-08 20:22 | NUR ---
PT IS AXOX4, PLEASANT. VS ELEVATED BP 180 SBP, AFEBRILE, SR WITH PVCS ON MONITOR. PT C/O PAIN IN HIP. RX HYDROCODONE AVAILABLE. PT CONTINUED ON ABX THERAPY. PT/OT CONSULTED, CARDIOLOGY CONSULTED, DR THAO CONSULTED. POC IS TO CONTINUE ABX THERAPY, WITH CARDIOLOGY TESTING. FALL PRECAUTIONS IN PLACE. NO CONCERNS AT THIS TIME.
[2020-10-09 04:35] LABS: ABSOLUTE NEUTROPHILS 7.7 thou/uL (1.4-8.2); BASOPHILS 0.1 % (0.0-2.0); HEMATOCRIT 25.9 % (42.0-52.0); HEMOGLOBIN 8.4 gm/dL (14.0-18.0); LYMPHOCYTES 4.6 % (24.0-44.0); MCH 28.1 pg (26.0-34.0); MCHC 32.4 g/dL (28.0-37.0); MCV 86.6 fL (80.0-100.0); MONOCYTES 5.5 % (1.0-8.0); PLATELET COUNT 258 thou/uL (150-400); POLYS 89.8 % (36.0-66.0); RBC 2.99 mil/uL (4.50-6.00); RDW 19.1 % (10.5-14.5); WBC 8.6 thou/uL (4.0-11.0)
[2020-10-09 04:45] VITALS: BP 171/119
[2020-10-09 04:48] LABS: CALCIUM 8.6 mg/dL (8.5-10.1); CREATININE 5.4 mg/dL (0.7-1.3); POTASSIUM 3.6 mmol/L (3.5-5.1)
[2020-10-09 07:25] VITALS: BP 158/109
--- NOTE | 2020-10-09 09:17 | NUR ---
PATIENT A/O X 4.PAIN WELL CONTROLLED.SHOWERED AT THE BEGINNING OF THE SHIFT.PT VERBALIZED HE'S READY TO GO HOME IF THEY ALLOW HIM.MONITOR SHOWS SR.POC CONTINUED.
[2020-10-09 11:15] VITALS: BP 142/89
[2020-10-09] MEDS ORDERED: ISORDIL10 MG PO (11:27)
[2020-10-09] MEDS ORDERED: SODIUM BICARBO650 M3 PO (11:27)
[2020-10-09] MEDS ORDERED: SPIRONOLACTONE25 M1 PO (11:27)
[2020-10-09] MEDS ORDERED: LIPITOR40 MG PO (11:27)
[2020-10-09] MEDS ORDERED: DEMADEX20 MG PO (11:27)
[2020-10-09 12:22] VITALS: BP 142/89
[2020-10-09] MEDS ORDERED: MUCINEX600 MG PO (14:01)
[2020-10-09] MEDS ORDERED: NORCO5 PO (14:01)
== END 2020-10-09 14:49 | disposition home or self-care (01) | DRG 291 ==
LOC: ER 04:48 → EROBS 06:46 → 2N 06:46 → EROBS 13:16 → 2N 16:19
PROVIDERS: Student in an Organized Health Care Education/Training Program; ADMIT Internal Medicine; ATTEND Internal Medicine
DX: I13.0 Hypertensive heart and chronic kidney disease with heart failure and stage 1 through stage 4 chronic kidney disease, or unspecified chronic kidney disease (principal); J18.9 Pneumonia, unspecified organism; I50.23 Acute on chronic systolic (congestive) heart failure; J96.00 Acute respiratory failure, unspecified whether with hypoxia or hypercapnia; J44.1 Chronic obstructive pulmonary disease with (acute) exacerbation; N18.4 Chronic kidney disease, stage 4 (severe); N17.9 Acute kidney failure, unspecified; J44.0 Chronic obstructive pulmonary disease with (acute) lower respiratory infection; I25.10 Atherosclerotic heart disease of native coronary artery without angina pectoris; Z20.822 Contact with and (suspected) exposure to COVID-19; E78.5 Hyperlipidemia, unspecified; F17.210 Nicotine dependence, cigarettes, uncomplicated; I16.0 Hypertensive urgency; E66.9 Obesity, unspecified; I71.4 Abdominal aortic aneurysm, without rupture; I73.9 Peripheral vascular disease, unspecified; Z88.0 Allergy status to penicillin; Z82.49 Family history of ischemic heart disease and other diseases of the circulatory system; Z84.1 Family history of disorders of kidney and ureter; Z68.34 Body mass index [BMI] 34.0-34.9, adult; Z71.6 Tobacco abuse counseling
CPT/HCPCS: 10081; 10194

== ENCOUNTER 2020-10-22 05:37 | Inpatient (IN) | payer OTHER ==
[~2020-10-22] VITALS: Ht 182.9 cm; Wt 116.6 kg
[~2020-10-22 05:37] MED LIST changes: +DEMADEX20 MG PO; +ISORDIL10 MG PO; +MUCINEX600 MG PO; +SODIUM BICARBO650 M3 PO
[2020-10-22 05:57] VITALS: BP 224/144
[2020-10-22 06:15] LABS: ABSOLUTE NEUTROPHILS 4.3 thou/uL (1.4-8.2); BASOPHILS 1.1 % (0.0-2.0); EOSINOPHILS 3.8 % (0.0-3.0); HEMATOCRIT 26.6 % (42.0-52.0); HEMOGLOBIN 8.6 gm/dL (14.0-18.0); LYMPHOCYTES 12.9 % (24.0-44.0); MCH 27.4 pg (26.0-34.0); MCHC 32.2 g/dL (28.0-37.0); MONOCYTES 6.8 % (1.0-8.0); PLATELET COUNT 271 thou/uL (150-400); POLYS 75.4 % (36.0-66.0); RBC 3.13 mil/uL (4.50-6.00); RDW 19.1 % (10.5-14.5); WBC 5.7 thou/uL (4.0-11.0)
[2020-10-22 06:22] LABS: ANION GAP 8 mmol/L (7-16); BUN 60 mg/dL (7-18); CALCIUM 8.8 mg/dL (8.5-10.1); CHLORIDE 103 mmol/L (98-107); CO2 27 mmol/L (21-32); CREATININE 6.1 mg/dL (0.7-1.3); GLUCOSE 174 mg/dL (74-106); POTASSIUM 3.8 mmol/L (3.5-5.1); SODIUM 138 mmol/L (136-145)
[2020-10-22 06:28] LABS: ALBUMIN 2.9 g/dL (3.4-5.0); SGOT 13 U/L (15-37); SGPT 20 U/L (16-63); TOTAL BILIRUBIN 0.4 mg/dL (0.2-1.0)
[2020-10-22 06:44] LABS: TROPONIN-I <0.06 ng/mL (<0.06)
--- NOTE | 2020-10-22 07:28 | EKG ---
[address] [email or web address] [address] ELECTROCARDIOGRAM REPORT Name: RICCARDO LEÓNE GREGG Room #: REG 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1960 Requested By: Hero Ravi Order Number: [id number] MD: Dusty Estrada Measurements Intervals [place] Rate: 102 P: 38 CO: 186 QRS: -19 QRSD: 132 T: 107 QT: 361 QTc: 471 Interpretive Statements Sinus tachycardia Probable left atrial enlargement Left ventricular hypertrophy Inferior infarct, old Anterior infarct, old Lateral leads are also involved Compared to ECG 08/30/2020 02:33:25 Left ventricular hypertrophy now present Myocardial infarct finding now present Ventricular premature complex(es) no longer present Electronically Signed On 10-22-2020 7:27:52 CDT by Dusty Estrada [email or web address] <ELECTRONICALLY SIGNED> By: Dusty Estrada MD, [facility] 10/22/20 0727 0549 0549 Dusty Estrada MD, [facility] /EPI
--- NOTE | 2020-10-22 07:42 | NUR ---
[facility] ADDRESS: [id number], [place] [address] PHONE: [phone] NOTE: UNABLE TO OBTAIN MEDICATION LIST, PHARMACY CLOSED UNTIL 0900, EDP NOTIFIED.
[2020-10-22 09:06] LABS: POLYCHROMASIA OCCASIONAL
[2020-10-22 09:07] LABS: ANISOCYTOSIS 2+; OVALOCYTES 2+; POIKILOCYTOSIS 2+
[2020-10-22 14:41] VITALS: BP 180/114
[2020-10-22 16:19] VITALS: BP 185/105
--- NOTE | 2020-10-22 17:36 | NUR ---
59 year old male presented to the ED on 10-22-20 with complaints of SOA. ED notes patient vaccinated with Moderna in May and ID NOW in ED shows negative. Patient admitted for Exacerbation of CHF; noting recent hospitalization for the same in August and just discharged on 10-09-20 to home with outpatient follow up. Upon evaluation from cardiology it was noted that current acute on chronic systolic heart failure to be: "Suspected dietary indiscretion. Reports eating BBQ, saltine crackers, etc. at home". Per the ED assessment the patient remains A&O x4 and lists life partner Jennifer Guillory at [phone] as person of notification. The patient remains to be documented as A&O x4. As plan of care and assessments are completed CM will assist if needed for discharge needs.
--- NOTE | 2020-10-22 19:06 | NUR ---
Received pt from the ED, on 2 L of O2 via NC. SOB noted with exertion. Admission oders carried out. Medicaitions given as per emar. POC followed, pt preferred to stay on the recliner vs the bed. BP elevated, medications given. Endorsed to the night nurse.
[2020-10-22 19:45] VITALS: BP 171/95
--- NOTE | 2020-10-23 05:35 | NUR ---
Assumed pt care at 1900. A/OX4,VSS. C/o pain to right hip,orders for pain meds obtained and administered. After sometime pt called for pain meds,Morphine ordered on EMAR pt stated "I don't want that the last I took it I felt weird" Billie SUBASSEMBLER notified again,[place] order changed to Q6PRN. Pt has dyspnea on exertion,on 2L/NC. Resting on recliner with feet elevated. SR on telemetry.
[2020-10-23 05:40] LABS: HEMATOCRIT 24.9 % (42.0-52.0); HEMOGLOBIN 8.1 gm/dL (14.0-18.0); MCH 27.4 pg (26.0-34.0); MCHC 32.5 g/dL (28.0-37.0); MCV 84.5 fL (80.0-100.0); RBC 2.94 mil/uL (4.50-6.00); RDW 18.8 % (10.5-14.5); WBC 6.2 thou/uL (4.0-11.0)
[2020-10-23 06:04] LABS: CALCIUM 8.4 mg/dL (8.5-10.1); CREATININE 5.7 mg/dL (0.7-1.3); POTASSIUM 4.3 mmol/L (3.5-5.1)
[2020-10-23 06:21] VITALS: BP 170/98
[2020-10-23 07:26] VITALS: BP 163/103
--- NOTE | 2020-10-23 09:35 | NUR ---
59 year old male presented to the ED on 10-22-20 with complaints of SOA. ED notes patient vaccinated with Moderna in May and ID NOW in ED shows negative. Patient admitted for Exacerbation of CHF; noting recent hospitalization for the same in August and just discharged on 10-09-20 to home with outpatient follow up. Upon evaluation from cardiology it was noted that current acute on chronic systolic heart failure to be: "Suspected dietary indiscretion. Reports eating BBQ, saltine crackers, etc. at home". Per the ED assessment the patient remains A&O x4 and lists life partner Jennifer Guillory at [phone] as person of notification. The patient remains to be documented as A&O x4. As plan of care and assessments are completed CM will assist if needed for discharge needs. Per chart review appears that pt resides in an apartment with sig other and kids. Cm following regarding dc planning.
[2020-10-23 15:09] VITALS: BP 150/95
--- NOTE | 2020-10-23 18:23 | NUR ---
Assumed pt care this am, vs stable. RT removed NC currently on room air. POC followed with no signs or verbalizations of distress noted. Diet and medications well tolerated. Urinates in the urinal, independent of all adl's. Pain is managed with medicatons, partial relief is noted since hip pain is chronic and is scheduled for surgery on 11/19/20 at [facility]. Prefers to stay on the recliner.
[2020-10-23 21:00] VITALS: BP 146/90
[2020-10-24 04:38] VITALS: BP 158/100
--- NOTE | 2020-10-24 05:55 | NUR ---
Today this pt has had some stated pain in which was taken care of with medication. He has been sleeping in the chair for most of the night and has been using the urinal with no difficulty. He did have an elevated b/p in which was taken care of with medications.. He otherwise awaits for the next plan.
[2020-10-24 06:00] LABS: CALCIUM 8.3 mg/dL (8.5-10.1); CREATININE 5.6 mg/dL (0.7-1.3); POTASSIUM 3.5 mmol/L (3.5-5.1)
[2020-10-24 07:50] VITALS: BP 179/89
[2020-10-24 11:42] VITALS: BP 179/89
[2020-10-24 11:45] VITALS: BP 132/94
--- NOTE | 2020-10-24 11:50 | NUR ---
CARE TEAM INDICATED THAT PT IS MEDICALLY STABLE TO DC HOME THIS DAY. CM MET WITH PT AT BEDSIDE AND HE IS AWARE OF DC. CM PROVIDED SAFTEY NET CLINIC PACKET PT DOESN'T HAVE A PCP. PT TO DC HOME TO SELF CARE. PT INDICATED HE HAS TRANSPORT HOME THIS DAY. NO OTHER CM INTERVENTION INDICATED. CASE CLOSED.
--- NOTE | 2020-10-24 11:52 | NUR ---
ASSUMED PT CARE THIS AM. PT A&OX4, ABLE TO MAKE NEEDS KNOWN. PATIENT UP IN ROOM WITH STANDBY ASSIST. IV PATENT, SALINE LOCKED. PATIENT REMAINS CONTINENT. MORNING MEDICATION TAKEN WITHOUT ISSUE. PATIENT REPORTING HEADACHE PAIN AT THIS TIME, GAVE ASPIRIN REQUESTED. PATIENT REMAINS ON ROOM AIR. CALL LIGHT WITHIN REACH.
[2020-10-24 12:34] VITALS: BP 149/99
== END 2020-10-24 13:45 | disposition home or self-care (01) | DRG 291 ==
LOC: ER 05:37 → EROBS 07:51 → 4W 16:11
PROVIDERS: Emergency Medicine; ADMIT Hospitalist; ATTEND Hospitalist
DX: I13.0 Hypertensive heart and chronic kidney disease with heart failure and stage 1 through stage 4 chronic kidney disease, or unspecified chronic kidney disease (principal); N17.9 Acute kidney failure, unspecified; I50.23 Acute on chronic systolic (congestive) heart failure; J44.1 Chronic obstructive pulmonary disease with (acute) exacerbation; N18.5 Chronic kidney disease, stage 5; I25.10 Atherosclerotic heart disease of native coronary artery without angina pectoris; F17.210 Nicotine dependence, cigarettes, uncomplicated; E78.5 Hyperlipidemia, unspecified; I71.4 Abdominal aortic aneurysm, without rupture; I08.3 Combined rheumatic disorders of mitral, aortic and tricuspid valves; Z20.822 Contact with and (suspected) exposure to COVID-19; Z88.0 Allergy status to penicillin; Z71.6 Tobacco abuse counseling; Z79.82 Long term (current) use of aspirin; Z79.899 Other long term (current) drug therapy
CPT/HCPCS: 10045

== ENCOUNTER → 2020-11-07 | Outpatient (CLI) | payer OTHER | LOC: SJCVCIMAG 07:44 | PROVIDERS: ATTEND Internal Medicine Cardiovascular Disease | DX: I44.0 Atrioventricular block, first degree (principal); I49.3 Ventricular premature depolarization; I25.5 Ischemic cardiomyopathy; I25.10 Atherosclerotic heart disease of native coronary artery without angina pectoris; N18.9 Chronic kidney disease, unspecified; R00.0 Tachycardia, unspecified; E78.5 Hyperlipidemia, unspecified; I73.9 Peripheral vascular disease, unspecified; F17.200 Nicotine dependence, unspecified, uncomplicated; Z79.82 Long term (current) use of aspirin; Z79.899 Other long term (current) drug therapy; Z88.0 Allergy status to penicillin ==

== ENCOUNTER 2020-11-21 06:30 | Inpatient (IN) | payer OTHER ==
[~2020-11-21] VITALS: Ht 246.4 cm; Wt 118.8 kg
[2020-11-21] VITALS (10 sets, daily range): BP systolic 136–177; BP diastolic 89–125
--- NOTE | 2020-11-21 09:26 | EKG ---
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 : 1960 Requested By: Ellis Moraes Order Number: [id number] : Dusty Estrada Measurements Intervals [place] Rate: 97 P: 48 GA: 239 QRS: -37 QRSD: 132 T: 101 QT: 365 QTc: 464 Interpretive Statements Sinus rhythm Prolonged GA interval Probable left atrial enlargement Nonspecific IVCD with LAD Left ventricular hypertrophy Inferior infarct, old Anterior infarct, old Baseline wander in lead(s) I,V1 Compared to ECG 10/22/2020 05:49:21 First degree AV block now present Intraventricular conduction delay now present Sinus tachycardia no longer present Electronically Signed On 11-21-2020 9:26:07 CDT by Dusty Estrada [email or web address] <ELECTRONICALLY SIGNED> By: Dusty Estrada MD, FACC 11/21/20925 9 9 Dusty Estrada MD, FAC /EPI
--- NOTE | 2020-11-21 15:36 | NUR ---
PT ORIENTE TO ROOM AND UNIT, BED LOW AND LOCKED, SIDE RAILS UPX3, CALL LIGHT IN REACH. RIGHT GROIN CDI WITH NO HEMATOMA, TELE APPLIED. WILL CONTINUE TO ASSESS.
[2020-11-22 00:02] VITALS: BP 169/102
[2020-11-22 02:50] LABS: HEMATOCRIT 24.2 % (42.0-52.0); HEMOGLOBIN 7.9 gm/dL (14.0-18.0); MCH 26.3 pg (26.0-34.0); MCHC 32.5 g/dL (28.0-37.0); MCV 80.9 fL (80.0-100.0); RBC 2.99 mil/uL (4.50-6.00); RDW 18.5 % (10.5-14.5); WBC 5.1 thou/uL (4.0-11.0)
[2020-11-22 03:08] LABS: ALBUMIN 2.8 g/dL (3.4-5.0); CALCIUM 8.6 mg/dL (8.5-10.1); CREATININE 5.4 mg/dL (0.7-1.3); PHOSPHORUS 4.2 mg/dL (2.5-4.9); POTASSIUM 3.7 mmol/L (3.5-5.1)
[2020-11-22 04:35] VITALS: BP 159/97
--- NOTE | 2020-11-22 07:09 | NUR ---
PT RESTING ON AND OFF THRU THE NOC, PRN PAIN MEDS GIVEN FOR C/O BACK PAIN, PLAN FOR DIALYSIS THIS AM, VOIDS PER URINAL, R GROIN DRESSING REMAINS CDI, VSS, WILL CON'T TO MONITOR PER PPOC.
[2020-11-22 09:09] VITALS: BP 149/98
--- NOTE | 2020-11-22 13:12 | NUR ---
Received RD consult. Admit with acute on chronic CHF. Also hx CAD, HTN, CKD. A temporary dialysis cath has been placed and pt had first treatment today. Wts down 16 lb since % moderate loss but could be fluid related. Attempted to visit pt and discuss diet and eating habits however pt falling asleep mid-sentence. Will follow up at later date for nutrition education needs.
--- NOTE | 2020-11-22 14:05 | NUR ---
Case opened to follow for dc planning. Back Wedger visited with the pt at bedside and his friend (sign other) Jennifer is currently at bedside. Pt agreeable to cm assessment with Jennifer present but indicates his emergency contact and spokesperson to be his son Tamera [phone]. He did not want anyone else added to the list. He notes he had tunneled cath placed at [facility] recently after f/u with Nephrology in anticipation of starting dialysis. Consult rec'd to arrange for outpt dialysis at [facility]. Message left for Catherine in admissions at [facility] to see if she has rec'd all needed clinical. Pt had his first dialysis today. Flowsheets and clinical from this admission faxed to Catherine. [facility] indicates he is not on their schedule yet but they have heard about him and referred back to Catherine as he is a new start. Cm role introduced to the pt. He indicates perference for MWF schedule if possible. He uses a st cane for gait and lives with his son Antonio in ground level apt with no steps. He is indep with gait and adl's. He does not drive and would rely on family for ride to dialysis until he can do a share a [employer] ja. [facility] referral discussed for primary care as he does not have one. He also had cardiac cath resulting in CTS consult d/t 100% occlusion. Pt indicates he has not made a decision about surgery or stenting. Support provided. Plan is to dialyze again tomorrow.
[2020-11-22 15:42] VITALS: BP 139/95
--- NOTE | 2020-11-22 15:56 | NUR ---
ASSESSMENT CHARTED - MEDS PER MAR - URIAH DIET AND FLUIDS. NO CO'S OF PAIN OR NASUA. PT HAD DILAYSIS THIS AM - STATED HE WAS TIERD POST TREATMENT. - APPEARS TO HAVE URIAH WELL. SEEN BY CARDIO THORASIC SURGERY THIS AM - PT HAD MRSA SWAB SENT TO LAB ORDERED. COVIE TESTING COMPLETING WELL. FAMILY AT THE BEDSIDE THIS AFTERNOON. VSS. NO CO'S AT THE PRESENT TIME.
[2020-11-22 19:54] VITALS: BP 153/96
[2020-11-23] VITALS (7 sets, daily range): BP systolic 130–172; BP diastolic 76–112
--- NOTE | 2020-11-23 03:58 | NUR ---
assumed pt care at change of shift, alert and orientedx4, sr/bbb/1davb, c/o chronic r. hip pain, pain meds given with relief, dialysis cath to the right chest cdi, assessments as charted, no needs at this time, plan for dialysis today
--- NOTE | 2020-11-23 09:14 | HC ---
[facility] [place] [address] CONSULTATION Name: SAUL LEÓN Room #: 204-P ADM IN M.R.#: [id number] Admission: 11/21/20 Attend Phys: Ellis Moraes MD, Discharge: Date of : 64 Report #: [id number] THIS REPORT FOR: cc: FAM - No family physician/PCP FAM - No family physician/PCP Cresencio Lan MD ~ DATE OF SERVICE: 11/22/2020 We were asked by Dr. Moraes to see the patient. HISTORY OF PRESENT ILLNESS: The patient is a 60-year-old with coronary artery disease. The patient presents with a several month history of heart failure. The patient states he has shortness of breath and fluid retention. He denies problems with angina. We note, the patient was recently started on dialysis. Cardiac catheterization was done yesterday, pulmonary artery pressure was 70, wedge pressure 34. Cardiac catheterization showed important 3-vessel coronary disease including total occlusion of the mid right coronary artery, 70% mid LAD and 50% circumflex stenosis. There is also high-grade lesion threatening moderate to small first diagonal. Left ventricular function, estimated at 30%, but the left heart was not well filled. Previous echo shows an EF of 30% with mild aortic and mitral incompetence. PAST MEDICAL HISTORY: Significant for hypertension and hyperlipidemia. The patient denies diabetes mellitus. As mentioned, the patient has just been started on dialysis for end-stage renal disease. HOME MEDICATIONS: Includes allopurinol, aspirin, torsemide, amitriptyline, atorvastatin, carvedilol, hydralazine, diltiazem, nitroglycerin. ALLERGIES: THE PATIENT STATES HE IS ALLERGIC TO PENICILLIN WHICH CAUSES THROAT SWELLING. 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 REVIEW OF SYSTEMS: CONSTITUTIONAL: Denies fever or chills. EYES: Denies vision change. HEENT: Denies headache, sinus problems, hearing problems. [facility] [address] [place] [address] CONSULTATION Name: SAUL LEÓN Room #: 204-P [facility] IN ..#: [id number] Admission: 11/21/20 Attend Phys: Ellis Moraes MD, Discharge: Date of : 64 Report #: [id number] RESPIRATORY: Shortness of breath on exertion positive. CARDIAC: Denies angina. Denies palpitations. GASTROINTESTINAL: Denies nausea, vomiting, abdominal pain. GENITOURINARY: Denies urgency, frequency. MUSCULOSKELETAL: Denies bone or joint pain. SKIN: Denies rash or infection. NEUROLOGIC: Denies motor or sensory dysfunction. ENDOCRINE: Denies goiter, tremor. HEMATOLOGIC: Denies bruisability or bleeding. PHYSICAL EXAMINATION: GENERAL: The patient is lying in bed without distress. VITAL SIGNS: Temperature 36.8, heart rate 96, blood pressure 149/98, respiratory rate 18, pulse ox 100% on 2 L. HEENT: No scleral icterus. No arcus. NECK: No mass, no bruit. CHEST: Clear to auscultation. HEART: Rhythm regular, no significant murmur. ABDOMEN: Soft, no mass, no tenderness. EXTREMITIES: No clubbing, cyanosis or edema, 1+ right popliteal pulse 2+ left popliteal pulse. No obvious saphenous vein problems. SKIN: No rash or infection. MUSCULOSKELETAL: No obvious bone or joint asymmetry or deformity. NEUROLOGIC: No obvious motor or sensory dysfunction. ASSESSMENT AND PLAN: I reviewed the cardiac catheterization with the patient and discussed options for care. The patient does have important 3-vessel coronary disease in the setting of reduced ventricular function and he presents with heart failure rather than angina with also the new dialysis. Risk of surgery of course is related to ventricular function and as such, this is in a higher risk category. I will review options for treatment with Dr. Moraes. Certainly if we proceed with surgery, perioperative intraaortic balloon might be valuable, but in any event, risks and details of surgery were discussed with the patient and the patient will reflect as we continue to gather data. Thank you for the consult. <ELECTRONICALLY SIGNED> By: Cresencio Lan MD 11/23/20 0914 0948 01 Cresencio Lan MD /nt
[2020-11-23] MEDS ORDERED: PLAVIX 75 MG TA75 MG PO (09:17)
--- NOTE | 2020-11-23 11:08 | NUR ---
Outpt dialysis schedule confirmed with Catherine at [facility]. She has all of his clinical in place and he is on the schedule for MWF 11:30 chair time. He will need to arrive at 11:15. She indicates they have spoken directly with the pt as well. Dc instructions updated. Pt dialyzing this am and dc home this afternoon with plans for outpt f/u with cardiology. No other cm interventions indicated. Care team updated.
--- NOTE | 2020-11-23 17:58 | CATHLAB ---
[facility] [place] [address] INVASIVE PROCEDURE REPORT Name: SAUL LEÓN Room #: 204-P [facility] IN M.R.#: [id number] Admission: 11/21/20 Attend Phys: Ellis Moraes MD, Discharge: 11/23/20 Date of : 64 Report #: [id number] THIS REPORT FOR: cc: FAM - No family physician/PCP FAM - No family physician/PCP Ellis Moraes MD [facility] ~ APPROVED REPORT Study performed: 11/21/2020 09:58:18 Patient Details Patient Status: Out-Patient Room #: The patient is a 60 year-old male Event Personnel Ellis Moraes Supervisor Compounding And Finishing, Ac Dennison RN RN, Joanne Márquez RTR Monitor, Dorene Meléndez RTR Scrub Procedures Performed Art Access - R femoral artery* Blake Access - R femoral vein Right and Left Heart Cath w/or w/o Coronarie [id number] RLHC Hemostasis w/ Mynx Hemostasis with Manual pressure 45496 Initial Mod Sed Same Phys/QHP Gr5y 565684 87523 Mod Sed Same Phys/QHP Ea 262874 Procedure Narrative The Right Groin^ was infiltrated with 1% Lidocaine subcutaneous anesthesia. A PINNACLE 6FR Sheath #[id number] sheath was inserted into the RFA^. Coronary angiography was performed using coronary diagnostic catheters. The right coronary system was accessed and visualized with a JR4 catheter. The left coronary system was accessed and visualized with a JL4 catheter. The left ventricle was accessed and visualized with a PIGTAIL catheter. Left ventriculogram was performed in 30 degree projection. Closure device was deployed with a Fr MYNXGRIP 6/7F #[id number]. The patient tolerated the procedure well and there were no complications associated with the procedure. There was no hematoma. Intraoperative Conscious Sedation Sedation start time: 10:54 Case end Time: 11:44 Fentanyl 50 mcg Versed 1 mg Fluoro Time: 3.40 minutes Dose: DAP 9968.10 cGycm2 1152 mGy [facility] [address] [place] [address] INVASIVE PROCEDURE REPORT Name: SAUL LEÓN Room #: 204-P [facility]..#: [id number] Admission: 11/21/20 Attend Phys: Ellis Moraes, Discharge: 11/23/20 Date of : 64 Report #: [id number] Hemodynamics The right atrial mean pressure is 26 mmHg. The right ventricular pressure is 67/13 mmHg. The pulmonary artery pressure is 66/42 mmHg with a mean of 53 mmHg. The mean pulmonary capillary wedge pressure is 34 mmHg. The aortic pressure is 155/101 mmHg with a mean of 124 mmHg. The left ventricular pressure is 143/20 mmHg with a mean of mmHg. The left ventricular end diastolic pressure is 33 mmHg. The cardiac output using thermo method is 8.30 L/min. The cardiac index using thermo method is 3.49 L/min/m2. Conclusion #1 Mildly dilated left ventricle moderate least severe hypokinesis slightly worse in the inferior wall EF 25% range. #2 left main is large mildly calcified giving rise to LAD and circumflex it is patent. #3 the LAD is complex and significantly calcified. There is an eccentric 80 to 90% focal lesion moderately heavy calcification in a long area of narrowing of 80 to 90% with a preserved distal half of this vessel which wraps the apex. Widely patent distal half. Proximal mid LAD has a prior stent which is widely patent. #4 circumflex OM also heavily calcified with eccentric proximal lesion in the 50 to 60% range and a 60% lesion after the first OM branch. Which is large but nondominant. 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 Is anatomically dominant but supplying only a moderate portion of the inferior wall due to the wraparound LAD. #6 successful right heart catheterization with cardiac output by thermodilution. With significant elevation in pulmonary artery pressures and pulmonary capillary wedge pressure. See above hemodynamics. Recommendations and plan: Continue aggressive risk factor modification. Very complex anatomy here. CV surgical consultation. I suspect will be a turndown. Rota stent procedure to LAD is an option. Will need dialysis and aggressive fluid removal prior to attempting any intervention. May need hemodynamic support with possible Impella device if this is undertaken for percutaneous intervention. Patient is pain-free and only moderately symptomatic from heart failure. Is currently and initiating hemodialysis [address] [address] INVASIVE PROCEDURE REPORT Name: SAUL LEÓN Room #: 204-P DIS IN M.R.#: [id number] Admission: 11/21/20 Attend Phys: Ellis Moraes, Discharge: 11/23/20 Date of : 64 Report #: [id number] temporary dialysis catheter placed prior to this procedure for that possibility. <ELECTRONICALLY SIGNED> By: Ellis Moraes MD, FACC 11/23/201756 56 56 Ellis Moraes MD, FACC /INF
== END 2020-11-23 12:46 | disposition home or self-care (01) | DRG 286 ==
LOC: 2N 06:30 → CATH 06:30 → 2N 16:07
PROVIDERS: Nurse Practitioner Adult Health; ADMIT Internal Medicine Cardiovascular Disease; ATTEND Internal Medicine Cardiovascular Disease
DX: I25.10 Atherosclerotic heart disease of native coronary artery without angina pectoris (principal); I50.23 Acute on chronic systolic (congestive) heart failure; N18.6 End stage renal disease; I13.2 Hypertensive heart and chronic kidney disease with heart failure and with stage 5 chronic kidney disease, or end stage renal disease; I42.9 Cardiomyopathy, unspecified; I77.9 Disorder of arteries and arterioles, unspecified; E87.70 Fluid overload, unspecified; I27.20 Pulmonary hypertension, unspecified; E78.5 Hyperlipidemia, unspecified; Z20.822 Contact with and (suspected) exposure to COVID-19; Z79.899 Other long term (current) drug therapy; Z79.82 Long term (current) use of aspirin; Z88.0 Allergy status to penicillin; Z99.2 Dependence on renal dialysis
CPT/HCPCS: 10081; 32100

== ENCOUNTER 2020-12-06 07:46 | Observation (INO) | payer OTHER ==
[~2020-12-06] VITALS: Ht 182.9 cm; Wt 112.9 kg
[2020-12-06] VITALS (19 sets, daily range): BP systolic 128–165; BP diastolic 85–116
[~2020-12-06 07:46] MED LIST changes: +PLAVIX 75 MG TA75 MG PO
--- NOTE | 2020-12-06 12:50 | EKG ---
[facility] [address] [place] [address] ELECTROCARDIOGRAM REPORT Name: SAUL LEÓN Room #: REG [facility]#: [id number] Admission: 12/06/20 Attend Phys: Ellis Moraes MD, Discharge: Date of : 64 Report #: [id number] [facility] Test Date: 2020-12-06 Test Time: 08:43:26 Pat Name: SAUL LEÓN Department: Room: Gender: Technical Coordinator: SBULOW : 1960 Requested By: Elmer Pisano Order Number: [id number] MD: Cayetano Beard Measurements Intervals [place] Rate: 97 P: 45 TN: 225 QRS: -34 QRSD: 132 T: 132 QT: 370 QTc: 470 Interpretive Statements Sinus rhythm Ventricular premature complex Prolonged TN interval Inferior infarct, old Poor R wave progression LVH with repolarization abnormality Baseline wander in lead(s) I,aVL,V1,V3 Compared to ECG 11/21/2020 08:10:28 Ventricular premature complex(es) now present Electronically Signed On 12-06-2020 12:50:31 CDT by Cayetano Beard [email or web address] <ELECTRONICALLY SIGNED> By: Cayetano Beard MD, [facility] 12/06/20 [phone] Cayetano Beard MD, [facility] /EPI
--- NOTE | 2020-12-06 15:30 | CATHLAB ---
[facility] [address] [place] [address] INVASIVE PROCEDURE REPORT Name: SAUL LEÓN Room #: REG MERRICK Stewart.#: [id number] Admission: 12/06/20 Attend Phys: Ellis Moraes MD, Discharge: Date of : 64 Report #: [id number] THIS REPORT FOR: cc: FAM - No family physician/PCP FAM - No family physician/PCP Elmer Pisano MD ~ APPROVED REPORT Study performed: 12/06/2020 09:57:06 Patient Details Patient Status: Out-Patient Room #: The patient is a 60 year-old male Event Personnel Elmer Pisano Forestry Patrolman, Palak Hardy RN RN, Nitza Fowler RTR, FRANCES Chakraborty, Alondra Salcido Monitor Procedures Performed Art Access - L femoral artery* COLBY Place w/wo Plasty Single LAD 707044 Atherectomy w/wo Plasty Sgl LAD 0521324 ATHSINGLE IABP Placement 4906462 IABPI 05531 Initial Mod Sed Same Phys/QHP Gr5y 598094 10753 Mod Sed Same Phys/QHP Ea 508810 Indication CHF Current Status: , Heart failure, Positive stress test, Chest pain, This patient has a history of ischemic cardiomyopathy with EF in the 25% range, severe three-vessel coronary artery disease, chronic kidney disease on dialysis, tobacco use, hypertension, hyperlipidemia, AAA stent graft repair with episodes of CHF. Nuclear stress test reveals anterior wall ischemia. Was evaluated by CV surgery, deemed a poor candidate for open heart surgery. He now presents for elective PCI involving placement of Impella heart pump, rotational atherectomy and PCI involving stent placement to a severe proximal/mid LAD stenosis. Risk Factors Peripheral Vascular Disease, Hypercholesterolemia, Coronary Artery DiseaseHypertensionRenal Failure, Tobacco History (), Dialysis Previous Procedures/Diagnoses Previous PCI, Previous Femoral Procedure, Previous CHFPrevious MIPrevious Vascular Surgery [address] [address] INVASIVE PROCEDURE REPORT Name: SAUL LEÓN Room #: REG Deyanira#: [id number] Admission: 12/06/20 Attend Phys: Ellis CampbellSara DonAleisha, Discharge: Date of : 64 Report #: [id number] Procedure Narrative The Right Groin^ was infiltrated with 1% Lidocaine subcutaneous anesthesia. A PINNACLE 7FR Sheath #[id number] sheath was inserted into the LFA^. Coronary angiography was performed using coronary diagnostic catheters. Intraoperative Conscious Sedation Fentanyl mcg Versed mg Fluoro Time: 3499.00 minutes Dose: DAP 64110.80 cGycm2 Contrast Type and Amount: Omnipaque 210 ml Coronary Angiography The patient's coronary anatomy is co- dominant. Diagnostic Cath LAD The LAD is a moderate-sized caliber vessel, traversing the anterior wall, wrapping around the apex and terminating in the mid inferior wall. There is a severe, eccentric and calcified stenosis involving the proximal/mid segment of the LAD. After the obstruction, there is a stent that is patent in the mid LAD segment. The mid and distal LAD is a good sized vessel, patent with no flow-limiting lesions. Hemodynamics The aortic pressure is 140/95 mmHg with a mean of 115 mmHg. PCI Technique Lesion Percutaneous coronary intervention was performed on the Proximal/mid left anterior descending artery segment. The lesion stenosis prior to intervention was 80-90% with KRYSTAL 3 flow. A VISTA 6FR XB 4 SH #[id number] Guide Catheter was used to engage the LAD ostium. A Luge Wire .014 x 182CM #[id number] Interventional Guidewire was used to cross the lesion. BALLOON DILATION A Balloon catheter TREK OTW 2.75 X 15 #[id number] was inserted and inflated up to 160.00atm for 23seconds. Additional Inflation: 160.00atm for 18seconds. Additional Inflation: 160.00atm for 19seconds. Access was obtained at the left groin site, cannulating the left femoral artery. Prior to implanting a 14 [place] Impella sheath, serial dilators were introduced. I placed the Impella heart pump into the left ventricle, arterial delivery tube placed in the aorta. Roto blator was performed prior to stent. 4 passes: 160 rpm [facility] [address] [address] INVASIVE PROCEDURE REPORT Name: SAUL LEÓN Room #: REG MAILE Mcmillan#: [id number] Admission: 12/06/20 Attend Phys: Ellis Moraes, Discharge: Date of : 64 Report #: [id number] for 28 sec., 160 rpm for 18 sec., 160 rpm for 19 sec, and 160 rpm for 18 sec. Before intervention was performed a IMPELLA was placed in the patient LV. STENT DEPLOYMENT A drug-eluting stent RESOLUTE PAWEL RX 3.0 X 30 #[id number] was inserted and inflated up to 16.00atm for 34seconds. POST STENT DEPLOYMENT BALLOON DILATION A Balloon catheter Euphora NC RX 3.5 x 15 #[id number] was inserted and inflated up to 18.00atm for 21seconds. Additional Inflation: 18.00atm for 15seconds. Additional Inflation: 18.00atm for 14seconds. Impella cath. removed after procedure, patient taken to holding for removal of sheath and aidan hold. Final angiography reveals 5 % stenosis with KRYSTAL 3 flow. Conclusion 1. The patient has severe three-vessel coronary artery disease and ischemic cardiomyopathy, ejection fraction of 25%. 2. Placement of Impella heart pump performed prior to rotational atherectomy/PCI. 3. Rotational atherectomy performed with a 1.5 mm merry in the proximal/mid LAD stenosis. 4. PCI with balloon angioplasty and placement of a drug-eluting stent into the proximal/mid LAD stenosis. 5. After the procedure, the Impella heart pump was removed in the Cardiac Safety Leader. 6. Recommend dual antiplatelet therapy and aggressive risk factor management. <ELECTRONICALLY SIGNED> By: Elmer Pisano MD 12/06/20 1530 153 153 Elmer Pisano MD /INF
[2020-12-06 17:41] LABS: CREATININE 4.5 mg/dL (0.7-1.3); POTASSIUM 3.5 mmol/L (3.5-5.1)
[2020-12-06 17:46] LABS: ALBUMIN 2.9 g/dL (3.4-5.0); PHOSPHORUS 3.9 mg/dL (2.6-4.7)
--- NOTE | 2020-12-06 20:21 | NUR ---
PT ARRIVED FROM CV LAB 1625. LT GROIN DRSG SATURATED W BLOOD.TO ICU BED.PRESSURE HELD TO LT GROIN X 35 MINUTES. NO BLEEDING OR HEMATOMA. DISTAL PULSE 1+,FOOT COOL.PT HAVING TREMENDOUS AMT OF PAIN RT HIP/TERRY/FLANK W/O RELIEF FROM MORPHINE EARLIER. UPDATED,ORDERS NOTED.PT MORE COMF p HYDROCODONE GIVEN EARLIER. GROIN CK Q 15 MIN W/O CHANGE. PT INSTRUCTED EARLIER TO KEEP LT LEG STRAIGHT,KEEP HEAD ON PILLOW.--VW LIMB ALERT BRACELOT TO LT ARM (PER PT GRAFT SITE GONG THERE).--VW CONSULTED EARLIER-LABS & UPDATE GIVEN p INITIAL CALL. AWARE OF HTN.--VW
[2020-12-07] VITALS (14 sets, daily range): BP systolic 130–168; BP diastolic 83–118
[2020-12-07 05:23] LABS: HEMATOCRIT 23.4 % (42.0-52.0); HEMOGLOBIN 7.4 gm/dL (14.0-18.0); MCH 25.7 pg (26.0-34.0); MCHC 31.5 g/dL (28.0-37.0); MCV 81.5 fL (80.0-100.0); RBC 2.87 mil/uL (4.50-6.00); RDW 20.8 % (10.5-14.5); WBC 4.3 thou/uL (4.0-11.0)
[2020-12-07 06:20] LABS: CALCIUM 8.1 mg/dL (8.5-10.1); POTASSIUM 3.6 mmol/L (3.5-5.1); TOTAL BILIRUBIN 0.5 mg/dL (0.2-1.0); TOTAL PROTEIN 6.7 g/dL (6.4-8.2)
--- NOTE | 2020-12-07 08:19 | EKG ---
[address] [address] ELECTROCARDIOGRAM REPORT Name: SAUL LEÓN GREGG Room #: 250-P [facility] M.R.#: [id number] Admission: 12/06/20 Attend Phys: Ellis Moraes MD, Discharge: Date of : 64 Report #: [id number] [facility] Test Date: 2020-12-07 Test Time: 07:17:09 Pat Name: SAUL LEÓN Department: Room: 250 P Gender: M Sponge Diver: RELL : 1960 Requested By: Elmer Pisano Order Number: [id number] MD: Dusty Estrada Measurements Intervals [place] Rate: 97 P: 40 [place]: 231 QRS: -31 QRSD: 132 T: 113 QT: 368 QTc: 468 Interpretive Statements Sinus rhythm Probable left atrial enlargement Nonspecific intraventricular conduction delay Anterior infarct, old Nonspecific T abnormalities, lateral leads Compared to ECG 12/06/2020 08:43:26 Intraventricular conduction delay now present T-wave abnormality now present Ventricular premature complex(es) no longer present Poor R-wave progression no longer present Early repolarization no longer present Electronically Signed On 12-07-2020 8:18:49 CDT by Dusty Estrada [email or web address] <ELECTRONICALLY SIGNED> By: Dusty Estrada MD, FACC 12/07/20817 6 6 Dusty Estrada MD, FACC /EPI
--- NOTE | 2020-12-07 11:45 | NUR ---
Discussed during los and unit rounds. Going to get dialysis and then able to dc home. [facility]. Up with cane. Will cont following as needed for dc needs.
--- NOTE | 2020-12-07 16:59 | NUR ---
PATIENT DISCHARGED TO HOME VIA W/C. NO HEMATOMA NOTED AT LEFT GROIN SITE. DISCHARGE INSTRUCTIONS AND MEDICATIONS REVIEWED WITH PATIENT WHO VERBALIZED UNDERSTANDING. QUESTIONS ADDRESSED AND REASSURANCE GIVEN. PATIENT DISCHAGED WITH FAMILY MEMBER HE WAS ABLE TO LOCATE A RIDE VIA CAR.
[2020-12-08 07:08] LABS: HEPATITIS B SURFACE AG Negative (Negative)
== END 2020-12-07 16:50 | disposition home or self-care (01) ==
LOC: CATH 07:46 → ICU 16:42
PROVIDERS: Hospitalist; Internal Medicine Cardiovascular Disease; Internal Medicine Nephrology; ADMIT Internal Medicine Cardiovascular Disease; ATTEND Internal Medicine Cardiovascular Disease
DX: I25.10 Atherosclerotic heart disease of native coronary artery without angina pectoris (principal); I13.2 Hypertensive heart and chronic kidney disease with heart failure and with stage 5 chronic kidney disease, or end stage renal disease; I50.23 Acute on chronic systolic (congestive) heart failure; N18.6 End stage renal disease; E78.5 Hyperlipidemia, unspecified; I42.9 Cardiomyopathy, unspecified; J44.9 Chronic obstructive pulmonary disease, unspecified; Z79.82 Long term (current) use of aspirin; Z79.899 Other long term (current) drug therapy
CPT/HCPCS: 32100

== ENCOUNTER → 2020-12-18 | Outpatient (CLI) | payer OTHER | LOC: SJCVCIMAG 09:48 | PROVIDERS: ATTEND Internal Medicine Cardiovascular Disease | DX: R10.30 Lower abdominal pain, unspecified (principal); R19.09 Other intra-abdominal and pelvic swelling, mass and lump; I25.10 Atherosclerotic heart disease of native coronary artery without angina pectoris; I25.5 Ischemic cardiomyopathy; I13.0 Hypertensive heart and chronic kidney disease with heart failure and stage 1 through stage 4 chronic kidney disease, or unspecified chronic kidney disease; E11.22 Type 2 diabetes mellitus with diabetic chronic kidney disease; I50.22 Chronic systolic (congestive) heart failure; N18.5 Chronic kidney disease, stage 5; E78.00 Pure hypercholesterolemia, unspecified; E78.5 Hyperlipidemia, unspecified; J44.9 Chronic obstructive pulmonary disease, unspecified; F17.200 Nicotine dependence, unspecified, uncomplicated; Z88.0 Allergy status to penicillin; Z79.82 Long term (current) use of aspirin; Z79.899 Other long term (current) drug therapy ==

== ENCOUNTER 2020-12-24 13:38 | Emergency (ER) | payer OTHER ==
[~2020-12-24] VITALS: Ht 182.9 cm; Wt 111.1 kg
[2020-12-24 14:56] LABS: ABSOLUTE NEUTROPHILS 2.9 thou/uL (1.4-8.2); BASOPHILS 0.5 % (0.0-2.0); EOSINOPHILS 2.3 % (0.0-3.0); HEMATOCRIT 29.1 % (42.0-52.0); HEMOGLOBIN 9.1 gm/dL (14.0-18.0); LYMPHOCYTES 15.5 % (24.0-44.0); MCH 25.7 pg (26.0-34.0); MCHC 31.1 g/dL (28.0-37.0); MCV 82.6 fL (80.0-100.0); MONOCYTES 9.2 % (1.0-8.0); PLATELET COUNT 270 thou/uL (150-400); POLYS 72.5 % (36.0-66.0); RBC 3.53 mil/uL (4.50-6.00)
[2020-12-24 15:18] LABS: CREATININE 3.4 mg/dL (0.7-1.3); POTASSIUM 3.1 mmol/L (3.5-5.1)
[2020-12-24 15:28] LABS: ALBUMIN 3.6 g/dL (3.4-5.0); TOTAL BILIRUBIN 1.2 mg/dL (0.2-1.0); TOTAL PROTEIN 8.5 g/dL (6.4-8.2)
--- NOTE | 2020-12-24 15:38 | EKG ---
[place] [address] [address] [facility] [place] [address] ELECTROCARDIOGRAM REPORT Name: SAUL LEÓN Room #: REG [facility]#: [id number] Admission: 12/24/20 Attend Phys: Discharge: Date of : 64 Report #: [id number] [facility] ED Test Date: 2020-12-24 Test Time: 14:46:26 Pat Name: SAUL LEÓN Department: Room: Gender: M Senior Ux Designer: MARYJANE : 1960 Requested By: Nasim Ram Order Number: [id number] MD: Dusty Estrada Measurements Intervals [place] Rate: 107 P: 174 IN: 175 QRS: -26 QRSD: 132 T: 149 QT: 354 QTc: 473 Interpretive Statements Sinus tachycardia Probable left atrial enlargement LVH with IVCD and secondary repol abnrm ST elevation suggests acute pericarditis Compared to ECG 12/07/2020 07:17:09 Left ventricular hypertrophy now present Early repolarization now present ST (T wave) deviation now present Sinus rhythm no longer present Myocardial infarct finding no longer present T-wave abnormality no longer present Electronically Signed On 12-24-2020 15:38:21 CDT by Dusty Estrada [email or web address] <ELECTRONICALLY SIGNED> By: Dusty Estrada MD, FACC 12/24/20 1538 1446 1446 Dusty Estrada MD, FAC /EPI
[2020-12-24 15:39] LABS: OVALOCYTES 2+
[2020-12-24 15:40] LABS: ANISOCYTOSIS 2+; SCHISTOCYTES 1+
[2020-12-24] MEDS ORDERED: NORCO7.5 PO (19:51)
[2020-12-24 20:14] VITALS: BP 177/99
== END 2020-12-24 20:15 | disposition home or self-care (01) ==
LOC: ER 13:38
PROVIDERS: Emergency Medicine
DX: R06.00 Dyspnea, unspecified (principal); Z20.822 Contact with and (suspected) exposure to COVID-19; M25.551 Pain in right hip; I25.10 Atherosclerotic heart disease of native coronary artery without angina pectoris; E78.5 Hyperlipidemia, unspecified; I13.2 Hypertensive heart and chronic kidney disease with heart failure and with stage 5 chronic kidney disease, or end stage renal disease; N18.6 End stage renal disease; I50.9 Heart failure, unspecified; J44.9 Chronic obstructive pulmonary disease, unspecified; F17.210 Nicotine dependence, cigarettes, uncomplicated; Z99.2 Dependence on renal dialysis; Z79.899 Other long term (current) drug therapy; Z79.51 Long term (current) use of inhaled steroids; Z79.82 Long term (current) use of aspirin; Z79.891 Long term (current) use of opiate analgesic; Z88.0 Allergy status to penicillin

== ENCOUNTER → 2021-04-02 | Outpatient (CLI) | payer OTHER ==
[~2021-04-02] MED LIST changes: +NORCO7.5 PO
== END ==
LOC: SJCVCIMAG 12:13
PROVIDERS: ATTEND Internal Medicine Cardiovascular Disease
DX: I08.3 Combined rheumatic disorders of mitral, aortic and tricuspid valves (principal); I71.4 Abdominal aortic aneurysm, without rupture; I25.10 Atherosclerotic heart disease of native coronary artery without angina pectoris; R00.0 Tachycardia, unspecified

== ENCOUNTER → 2021-04-04 | Outpatient (CLI) | payer OTHER | LOC: SJCVC 15:25 | PROVIDERS: ATTEND Internal Medicine Cardiovascular Disease | DX: I25.5 Ischemic cardiomyopathy (principal); I25.10 Atherosclerotic heart disease of native coronary artery without angina pectoris; I50.22 Chronic systolic (congestive) heart failure; I50.20 Unspecified systolic (congestive) heart failure; N18.6 End stage renal disease; I71.4 Abdominal aortic aneurysm, without rupture; E78.00 Pure hypercholesterolemia, unspecified; J44.9 Chronic obstructive pulmonary disease, unspecified; Z99.2 Dependence on renal dialysis; F17.200 Nicotine dependence, unspecified, uncomplicated; Z88.0 Allergy status to penicillin; Z79.82 Long term (current) use of aspirin; Z79.899 Other long term (current) drug therapy; Z82.49 Family history of ischemic heart disease and other diseases of the circulatory system; R94.31 Abnormal electrocardiogram [ECG] [EKG] ==